=== PATIENT | male | born 1940 | race Caucasian/White ===

== ENCOUNTER 2018-09-27 00:18 | Inpatient (IN) | payer MEDICARE, BC ==
[2018-09-27] MEDS ORDERED: Sodium Chloride 0.9% 1,000 ML IV ONE (00:41)
[2018-09-27 01:12] LABS: CHLORIDE,CL 105 mEq/L (98-106); SODIUM,NA 141 mEq/L (136-145)
--- NOTE | 2018-09-27 01:12 | EDM.PDOC ---
ED HPI GENERAL MEDICAL PROBLEM - General Chief Complaint: Abdominal Pain Stated Complaint: epigastric pain Time Seen by Provider: 09/27/18 01:01 Source of Information: Reports: Patient, Family History Limitations: Reports: No Limitations - History of Present Illness INITIAL COMMENTS - FREE TEXT/NARRATIVE: Patient presents to ER with complaints of midepigastric pain and vomiting. Also reports tingling in his left fingers. He had the flu last week on Wednesday and , had frequent vomiting and diarrhea at that time. Slowly recovered over the weekend. Did eat more of a normal diet on Wednesday but had again vomiting tonight but now also has pain. States known to have ulcers in the past so questions if the "flu led to another with all the vomiting ". He admits now his pain has decreased, resting more comfortably now. Did have a normal BM earlier today, did not note any blood in his stools. Is concerned about dehydration as feels very weak. "mouth is dry". Denies any chest pain except mild discomfort at the site of his pacemaker. No shortness of breath. No diaphoresis. No nausea at present. Onset: Gradual Duration: Day(s): Location: Reports: Abdomen Quality: Reports: Burning, Sharp Severity: Moderate Improves with: Reports: Rest Associated Symptoms: Reports: Nausea/Vomiting, Weakness. Denies: Confusion, Chest Pain, Cough, Fever/Chills, Loss of Appetite, Shortness of Breath, Syncope Epigastric Pain Score (Numeric/FACES): 4 - Related Data Allergies Allergy/AdvReac Type Severity Reaction Status Date / Time cefuroxime axetil Allergy Cannot Verified 09/27/18 00:40 [From Ceftin] Remember clarithromycin [From Biaxin] Allergy Cannot Verified 09/27/18 00:40 Remember doxycycline Allergy Cannot Verified 09/27/18 00:40 Remember Home Meds: Home Meds Allopurinol [Zyloprim] 300 mg PO DAILY 01/31/15 [History] Ascorbic Acid [Vitamin C] 1 tab PO DAILY 01/31/15 [History] Cholecalciferol (Vitamin D3) [Vitamin D] 1 tab PO DAILY 01/31/15 [History] Levothyroxine 150 mcg PO ACBREAKFAST 01/31/15 [History] Multivitamin [Multivitamins] 1 tab PO DAILY 01/31/15 [History] amLODIPine [Norvasc] 5 mg PO DAILY 01/31/15 [History] Aspirin [Children's Aspirin] 81 mg PO DAILY 04/29/16 [History] Pantoprazole [ProTONIX] 40 mg PO DAILY 04/29/16 [History] Past Medical History 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 Cardiovascular History: Reports: Hypertension, Pacemaker Gastrointestinal History: Reports: GERD Musculoskeletal History: Reports: Arthritis Endocrine/Metabolic History: Reports: Hypothyroidism - Past Surgical History Musculoskeletal Surgical History: Reports: Hip Replacement, Shoulder Surgery, Other (See Below) Social & Family History - Family History Family Medical History: Noncontributory - Caffeine Use Caffeine Use: Reports: Coffee - Living Situation & Occupation Living situation: Reports: Occupation: Employed ED ROS GENERAL - Review of Systems Review Of Systems: See Below Constitutional: Reports: Chills, Malaise, Weakness, Fatigue, Decreased Appetite. Denies: Fever HEENT: Denies: Ear Pain, Sinus Problem, Throat Pain Respiratory: Denies: Shortness of Breath, Cough Cardiovascular: Reports: Edema. Denies: Chest Pain, Lightheadedness Endocrine: Reports: Fatigue GI/Abdominal: Reports: Abdominal Pain, Diarrhea, Decreased Appetite, Nausea, Vomiting. Denies: Hematochezia, Melena : Reports: No Symptoms Musculoskeletal: Reports: No Symptoms Skin: Reports: No Symptoms Neurological: Reports: No Symptoms, Weakness ED EXAM, GI/ABD - Physical Exam Exam: See Below Exam Limited By: No Limitations General Appearance: Alert, WD/WN, No Apparent Distress Ears: Normal External Exam, Normal TMs Nose: Normal Inspection, Normal Mucosa, No Blood Throat/Mouth: Normal Inspection, Normal Oropharynx, Other (mucous membranes dry) Head: Normocephalic Neck: Normal Inspection, Supple, Non-Tender Respiratory/Chest: No Respiratory Distress, Lungs Clear, Normal Breath Sounds Cardiovascular: Irregularly Irregular GI/Abdominal Exam: Normal Bowel Sounds, Soft, Tender (midepigastric area) Extremities: Normal Inspection, Normal Capillary Refill Neurological: Alert, Oriented Skin Exam: Warm, Dry Course - Vital Signs Last Recorded V/S: Last Vital Signs Temp 96.7 F 09/27/18 00:37 Pulse 66 09/27/18 00:37 Resp 18 09/27/18 00:37 BP 101/65 09/27/18 00:37 Pulse Ox 94 L 09/27/18 00:37 - Orders/Labs/Meds Orders: Active Orders 24 hr Category Date Time Status EKG Documentation Completion [RC] STAT Care 09/27/18 00:41 Active Sodium Chloride 0.9% [Normal Saline] 1,000 ml Med 09/27/18 00:41 Active IV .BOLUS Medication Orders Sodium Chloride (Normal Saline) 1,000 mls @ 999 mls/hr IV .BOLUS ONE Stop: 09/27/18 01:41 Last Admin: 09/27/18 00:50 Dose: 999 mls/hr Labs: Laboratory Tests 09/27/18 09/27/18 09/27/18 Range/Units 00:51 00:51 00:51 WBC 10.9 H (5.0-10.0) 10^3/uL RBC 4.49 L (4.50-6.00) 10^6/uL Hgb 14.9 (14.0-18.0) g/dL Hct 43.3 (40.0-54.0) % MCV 96.4 H (82.0-94.0) fL MCH 33.2 H (27.0-32.0) pg MCHC 34.4 (33.0-38.0) g/dL RDW Coeff of Nehemias 13.3 (11.0-15.0) % Plt Count 269 (150-400) 10^3/uL Neut % (Auto) 76.4 (35-85) % Lymph % (Auto) 10.3 (10-55) % [place] % (Auto) 12.1 (0-16) % Eos % (Auto) 1.1 (0-5) % Baso % (Auto) 0.1 (0-3) % Neut # (Auto) 8.31 H (1.80-7.00) 10^3/uL Lymph # (Auto) 1.12 (1.00-4.80) 10^3/uL [place] # (Auto) 1.32 H (0.00-0.80) 10^3/uL Eos # (Auto) 0.12 (0.00-0.45) 10^3/uL Baso # (Auto) 0.01 10^3/uL PT 10.6 (9.7-12.3) SEC INR 1.02 (0.92-1.18) Sodium 141 (136-145) mEq/L Potassium 3.7 (3.5-5.0) mEq/L Chloride 105 (98-106) mEq/L Carbon Dioxide 24 (21-32) mmol/L BUN 33 H (7-18) mg/dL Creatinine 1.0 (0.7-1.3) mg/dL Est Cr Clr Drug Dosing 60.48 mL/min Estimated GFR (MDRD) > 60 (>=60) mL/min Glucose 93 (75-99) mg/dL Calcium 8.6 (8.4-10.1) mg/dL Lactate Dehydrogenase 166 (100-190) U/L Creatine Kinase 34 L (35-232) U/L Troponin I < 0.017 (0.00-0.06) ng/mL Meds: Medications Generic Name Dose Route Start Last Admin Trade Name Freq PRN Reason Stop Dose Admin Sodium Chloride 1,000 mls @ 999 mls/hr 09/27/18 00:41 09/27/18 00:50 Normal Saline IV 09/27/18 01:41 999 mls/hr .BOLUS ONE Administration - Re-Assessments/Exams Free Text/Narrative Re-Assessment/Exam: 09/27/18 01:18 Patient now again having midepigastric pain and pain near his pacemaker site again. Is tender to palpation to both areas. labs all normal at this time. will repeat later this am. Departure - Departure Time of Disposition: 01:19 Disposition: Refer to Observation Condition: Fair Clinical Impression: Abdominal pain, Dehydration - Discharge Information *PRESCRIPTION DRUG MONITORING PROGRAM REVIEWED*: No *COPY OF PRESCRIPTION DRUG MONITORING REPORT IN PATIENT DEACON: No Referrals: Cris Laurent PA [Primary Care Provider] - Forms: ED Department Discharge - Problem List & Annotations (1) Abdominal pain SNOMED Code(s): 56007404 Code(s): R10.9 - UNSPECIFIED ABDOMINAL PAIN Status: Acute Priority: High Current Visit: Yes Qualifiers: Abdominal location: epigastric Qualified Code(s): R10.13 - Epigastric pain (2) Dehydration SNOMED Code(s): 72900117 Code(s): E86.0 - DEHYDRATION Status: Acute Priority: High Current Visit : Yes (3) Atypical chest pain SNOMED Code(s): 601258420 Code(s): R07.89 - OTHER CHEST PAIN Status: Acute Current Visit: Yes - Problem List Review Problem List Initiated/Reviewed/Updated: Yes - My Orders Last 24 Hours: My Active Orders 09/27/18 00:41 EKG Documentation Completion [RC] STAT Sodium Chloride 0.9% [Normal Saline] 1,000 ml IV .BOLUS - Assessment/Plan Admission H&P: Please use this note as an admission H&P Last 24 Hours: My Active Orders 09/27/18 00:41 EKG Documentation Completion [RC] STAT Sodium Chloride 0.9% [Normal Saline] 1,000 ml IV .BOLUS Assessment:: Abdominal Pain Dehydration Atypical Chest Pain Plan: Admit observation IV fluids IV Protonix. Repeat labs
[2018-09-27] MEDS ORDERED: Sodium Chloride 0.9% 1,000 ML ONE (02:05)
[2018-09-27] MEDS: Sodium Chloride 0.9% 1,000 ML IV SCH ×3 (02:05→17:52)
[2018-09-27] MEDS ORDERED: Enoxaparin 40 MG/0.4 ML Syringe SUBCUT SCH ×2 (03:02→07:00)
[2018-09-27] MEDS ORDERED: Acetaminophen 325 MG Tab PO PRN (03:02)
[2018-09-27] MEDS ORDERED: Sodium Chloride 0.9% 10 ML Syringe FLUSH PRN (03:02)
[2018-09-27] MEDS ORDERED: Ondansetron 4 MG/2 ML SDV IV PRN (03:02)
[2018-09-27] MEDS ORDERED: Temazepam 15 MG Cap PO PRN (03:02)
[2018-09-27 07:32] LABS: CHLORIDE,CL 107 mEq/L (98-106); SODIUM,NA 141 mEq/L (136-145)
[2018-09-27] MEDS ORDERED: **PTOM** Allopurinol 300 MG Tab PO SCH (08:00)
[2018-09-27] MEDS: Ondansetron 4 MG Tab.DIS PO PRN ×2 (08:55→12:54)
[2018-09-27] MEDS: Pantoprazole 40 MG Vial IVPUSH SCH (09:40)
[2018-09-27] MEDS: LEVOTHYROXINE 150 MCG PO SCH (12:55)
[2018-09-27] MEDS: **PTOM** Allopurinol 300 MG Tab PO SCH (19:25)
[2018-09-28] MEDS: Sodium Chloride 0.9% 1,000 ML IV SCH ×2 (01:40→10:42)
[2018-09-28] MEDS ORDERED: Lactated Ringers 1,000 ML ONE (01:43)
[2018-09-28] MEDS ORDERED: Lactated Ringers 1,000 ML IV SCH (06:00)
[2018-09-28] MEDS ORDERED: Midazolam 1 MG/ML 2 ML SDV ONE (07:52)
[2018-09-28] MEDS ORDERED: Meperidine PF 50 MG/ML Syringe ONE (07:52)
[2018-09-28 08:10] LABS: CHLORIDE,CL 109 mEq/L (98-106); SODIUM,NA 144 mEq/L (136-145)
[2018-09-28] MEDS ORDERED: Benzocaine 20% Oral Spray 59.2 ML Canister MUCMEM ONE (08:20)
[2018-09-28] MEDS ORDERED: Meperidine PF 25 MG/ML Syringe IV ONE (08:22)
[2018-09-28] MEDS ORDERED: Midazolam 1 MG/ML 2 ML SDV IV ONE (08:22)
[2018-09-28] MEDS: Enoxaparin 40 MG/0.4 ML Syringe SUBCUT SCH (09:14)
[2018-09-28] MEDS: LEVOTHYROXINE 150 MCG PO SCH (09:14)
[2018-09-28] MEDS: Pantoprazole 40 MG Vial IVPUSH SCH (09:15)
[2018-09-28] MEDS: Nystatin Susp 100,000 Unit/ML 5 ML UD Cup PO SCH ×4 (09:17→19:38)
[2018-09-28] MEDS ORDERED: Iopamidol 755 Mg/ML 100 ML Bottle IVPUSH ONE (12:55)
--- NOTE | 2018-09-28 17:06 | PCM.PN ---
- General Info Date of Service: 09/28/18 Admission Dx/Problem (Free Text): Abdominal Pain Subjective Update: Sina is an 78 year old male who was admitted to the hospital from the ED yesterday 09/27/2018 with c/o midepigastric pain and vomiting. Apparently vomiting had been going on for about a week or so and pain seemed to be worsening. Patient reports he does seem to be feeling a little better this morning. Did have EGD by Dr. Galvez this morning, which showed some areas of questionable esophageal yeast infection. Reports he does have cough, but has not vomited much. Does have some left sided upper abdominal pain as well as midsternal pain. He denies any shortness of breath. Has been afebrile. Functional Status: Reports: Pain Controlled, Tolerating Diet, Ambulating, Urinating. Denies: New Symptoms - Review of Systems General: Denies: Fever, Weakness, Fatigue, Chills Pulmonary: Reports: Cough. Denies: Shortness of Breath, Pleuritic Chest Pain, Sputum, Hemoptysis Cardiovascular: Reports: Dyspnea on Exertion. Denies: Chest Pain, Edema, Lightheadedness Gastrointestinal: Reports: Abdominal Pain, Nausea. Denies: Diarrhea, Vomiting Genitourinary: Reports: No Symptoms Neurological: Reports: No Symptoms Psychiatric: Reports: No Symptoms - Patient Data Vitals - Most Recent: Last Vital Signs Temp 98.8 F 09/28/18 16:00 Pulse 69 09/28/18 16:00 Resp 20 09/28/18 16:00 BP 120/58 L 09/28/18 16:00 Pulse Ox 98 09/28/18 16:00 Weight - Most Recent: 174 lb 14.4 oz I&O - Last 24 Hours: Intake & Output 09/28/18 09/28/18 09/28/18 06:59 14:59 22:59 Intake Total 975 1000 Balance 975 1000 Lab Results Last 24 Hours: Laboratory Results - last 24 hr 09/28/18 09/28/18 Range/Units 05:11 07:15 WBC 4.9 L (5.0-10.0) 10^3/uL RBC 4.16 L (4.50-6.00) 10^6/uL Hgb 13.8 L (14.0-18.0) g/dL Hct 41.0 (40.0-54.0) % MCV 98.6 H (82.0-94.0) fL MCH 33.2 H (27.0-32.0) pg MCHC 33.7 (33.0-38.0) g/dL RDW Coeff of Nehemias 13.4 (11.0-15.0) % Plt Count 259 (150-400) 10^3/uL Neut % (Auto) 54.7 (35-85) % Lymph % (Auto) 32.3 (10-55) % [place] % (Auto) 11.0 (0-16) % Eos % (Auto) 1.8 (0-5) % Baso % (Auto) 0.2 (0-3) % Neut # (Auto) 2.70 (1.80-7.00) 10^3/uL Lymph # (Auto) 1.59 (1.00-4.80) 10^3/uL [place] # (Auto) 0.54 (0.00-0.80) 10^3/uL Eos # (Auto) 0.09 (0.00-0.45) 10^3/uL Baso # (Auto) 0.01 10^3/uL Sodium 144 (136-145) mEq/L Potassium 4.0 (3.5-5.0) mEq/L Chloride 109 H (98-106) mEq/L Carbon Dioxide 28 (21-32) mmol/L BUN 13 D (7-18) mg/dL Creatinine 0.9 (0.7-1.3) mg/dL Est Cr Clr Drug Dosing 67.59 mL/min Estimated GFR (MDRD) > 60 (>=60) mL/min Glucose 84 (75-99) mg/dL Calcium 8.4 (8.4-10.1) mg/dL C-Reactive Protein 0.4 (0.2-0.8) mg/dL Med Orders - Current: Current Medications Acetaminophen (Tylenol) 650 mg PO Q4H PRN PRN Reason: Pain (Mild 1-3)/fever Allopurinol (Zyloprim) 300 mg PO BEDTIME [facility] Last Admin: 09/27/18 19:25 Dose: 300 mg Enoxaparin Sodium (Lovenox) 40 mg SUBCUT DAILY@0800 [facility] Last Admin: 09/28/18 09:14 Dose: 40 mg Levothyroxine Sodium (Levothyroxine) 150 mcg PO ACBREAKFAST [facility] Last Admin: 09/28/18 09:14 Dose: Not Given Nystatin (Mycostatin) 10 ml PO QID [facility] Last Admin: 09/28/18 16:23 Dose: 10 ml Ondansetron HCl (Zofran Odt) 4 mg PO Q4H PRN PRN Reason: nausea, able to take PO Last Admin: 09/27/18 12:54 Dose: 4 mg Ondansetron HCl (Zofran) 4 mg IV Q4H PRN PRN Reason: Nausea/Vomiting Pantoprazole Sodium (Protonix Iv) 40 mg IVPUSH DAILY [facility] Last Admin: 09/28/18 09:15 Dose: 40 mg Sodium Chloride (Saline Flush) 10 ml FLUSH ASDIRECTED PRN PRN Reason: Keep Vein Open Temazepam (Restoril) 15 mg PO BEDTIME PRN PRN Reason: Sleep Discontinued Medications Allopurinol (Zyloprim) 300 mg PO DAILY [facility] Last Admin: 09/27/18 18:17 Dose: Not Given Benzocaine (Hurricaine 20% [place]) 5 ml MUCMEM .STK-MED ONE Stop: 09/28/18 08:21 Last Admin: 09/28/18 08:20 Dose: 5 ml Enoxaparin Sodium (Lovenox) 40 mg SUBCUT Q24H [facility] Last Admin: 09/27/18 03:41 Dose: Not Given Enoxaparin Sodium (Lovenox) 40 mg SUBCUT Q24H [facility] Last Admin: 09/27/18 06:33 Dose: 40 mg Sodium Chloride (Normal Saline) 1,000 mls @ 999 mls/hr IV .BOLUS ONE Stop: 09/27/18 01:41 Last Admin: 09/27/18 00:50 Dose: 999 mls/hr Sodium Chloride (Normal Saline) Confirm Administered Dose 1,000 mls @ as directed .ROUTE .STK-MED ONE Stop: 09/27/18 02:06 Last Admin: 09/27/18 02:51 Dose: Not Given Sodium Chloride (Normal Saline) 1,000 mls @ 125 mls/hr IV ASDIRECTED [facility] Last Admin: 09/28/18 10:42 Dose: 125 mls/hr Lactated Ringer's (Ringers, Lactated) 1,000 mls @ 125 mls/hr IV ASDIRECTED [facility]IS[facility] Last Admin: 09/28/18 07:41 Dose: 125 mls/hr Lactated Ringer's (Ringers, Lactated) Confirm Administered Dose 1,000 mls @ as directed .ROUTE .STK-MED ONE Stop: 09/28/18 01:44 Last Admin: 09/28/18 02:01 Dose: Not Given Iopamidol (Isovue-370 (76%)) 100 ml IVPUSH ONETIME ONE Stop: 09/28/18 12:56 Last Admin: 09/28/18 13:15 Dose: 100 ml Meperidine HCl (Demerol) Confirm Administered Dose 50 mg .ROUTE .STK-MED ONE Stop: 09/28/18 07:53 Last Admin: 09/28/18 10:15 Dose: Not Given Meperidine HCl (Demerol) 25 mg IV .STK-MED ONE Stop: 09/28/18 08:23 Last Admin: 09/28/18 08:22 Dose: 25 mg Midazolam HCl (Versed 1 Mg/Ml) Confirm Administered Dose 4 mg .ROUTE .STK-MED ONE Stop: 09/28/18 07:53 Last Admin: 09/28/18 10:15 Dose: Not Given Midazolam HCl (Versed 1 Mg/Ml) 4 mg IV .STK-MED ONE Stop: 09/28/18 08:23 Last Admin: 09/28/18 08:22 Dose: 4 mg - Exam General: Alert, Oriented, No Acute Distress Neck: Supple Lungs: Clear to Auscultation, Normal Respiratory Effort, Rhonchi (LLL) Cardiovascular: Regular Rate, Regular Rhythm GI/Abdominal Exam: Normal Bowel Sounds, Soft, Tender (midepigastric, LUQ). No: Distended, Guarding, Rigid, Rebound Back Exam: Normal Inspection, Full Range of Motion Extremities: Normal Inspection, Normal Range of Motion, Non-Tender, No Pedal Edema, Normal Capillary Refill Neurological: No New Focal Deficit Psy/Mental Status: Alert, Normal Affect, Normal Mood - Problem List & Annotations (1) Pneumonia SNOMED Code(s): 164399590 Code(s): J18.9 - PNEUMONIA, UNSPECIFIED ORGANISM Status: Acute Current Visit: Yes Qualifiers: Pneumonia type: aspiration pneumonia Aspiration pneumonia type: due to vomit Laterality: left Lung location: lower lobe of lung Qualified Code(s) : J69.0 - Pneumonitis due to inhalation of food and vomit - Problem List Review Problem List Initiated/Reviewed/Updated: Yes - My Orders Last 24 Hours: My Active Orders 09/28/18 08:37 Abdomen Pelvis w Cont [CT] Routine 09/28/18 09:00 Nystatin [Mycostatin] 10 ml PO QID 09/28/18 14:56 Patient Status [ADT] Routine - Plan Plan:: EGD shows no obvious cause of abdominal pain. Does show some areas of questionable yeast, which were biopsied. Start patient on Nystatin swish & swallow QID. Since no obvious cause of pain identified, did opt to proceed with CT abdomen/ pelvis given ongoing pain/N/V. CT reveals LLL pneumonia, likely aspiration. Will start patient on clindamycin and admit to acute for IV antibiotics. Repeat labs in am. Anticipate length of stay 2-3 days.
[2018-09-28] MEDS: Clindamycin Phosphate in D5W 300 MG in Premix Bag 1 BAG IV SCH ×4 (17:47→23:28)
[2018-09-28] MEDS: **PTOM** Allopurinol 300 MG Tab PO SCH (19:38)
[2018-09-29] MEDS: Clindamycin Phosphate in D5W 300 MG in Premix Bag 1 BAG IV SCH ×10 (04:08→23:32)
[2018-09-29] MEDS: LEVOTHYROXINE 150 MCG PO SCH (06:36)
[2018-09-29 07:29] LABS: CHLORIDE,CL 104 mEq/L (98-106); SODIUM,NA 141 mEq/L (136-145)
[2018-09-29] MEDS: Nystatin Susp 100,000 Unit/ML 5 ML UD Cup PO SCH ×4 (07:41→19:23)
[2018-09-29] MEDS: Pantoprazole 40 MG Vial IVPUSH SCH (07:41)
[2018-09-29] MEDS: Enoxaparin 40 MG/0.4 ML Syringe SUBCUT SCH (07:41)
--- NOTE | 2018-09-29 09:09 | OR ---
DATE OF OPERATION: 09/28/2018 PREOPERATIVE DIAGNOSIS: EPIGASTRIC PAIN. POSTOPERATIVE DIAGNOSIS: EPIGASTRIC PAIN. SURGEON: Jose Galvez MD PROCEDURE: EGD WITH POLYP REMOVAL X2, DISTAL ESOPHAGEAL BRUSH BIOPSY WITH CULTURE. ANESTHESIA: Conscious sedation with 25 mg of Demerol, 4 mg of Versed with continuous O2 saturation monitoring and nurse assist. Patient's oxygenation stayed above 90% for the entire procedure. COMPLICATIONS: None. SPECIMEN: 1. Fundal polyps x2. 2. [place] biopsy/culture, distal esophagus. FINDINGS: 1. Full-length EGD. 2. Essentially benign duodenum and stomach with 2 small adenomatous polyps in the mid fundus. 3. Likely, distal esophageal candidiasis. RECOMMENDATIONS: Patient will be placed on nystatin 10 mL swish and swallow. We will plan on a CT abdomen and pelvis as his symptoms of abdominal epigastric pain not necessarily coincide with Jazmin. INDICATIONS: Patient was apparently admitted yesterday by Cris Laurent for acute onset of epigastric pain, some vomiting, and apparently has a history of peptic ulcer disease. She admitted him for appropriate cares and I was consulted for an EGD. DESCRIPTION OF PROCEDURE: The patient was prepped and draped, placed in left lateral decubitus position. A lubricated Olympus gastroscope was inserted over a bit and advanced to cricopharyngeus area and easily intubated in the esophagus. From the proximal esophagus down through the upper cardia of the stomach, the patient did have white plaque-like areas that appeared to be Jazmin in nature. No real inflammation of the esophagus was seen, nor was any gross esophagitis, stricturing, or inflammation that I could see. I did do a brush biopsy and culture of this. No other lesions were seen. The scope was easily intubated into the stomach through the pylorus and into the second portion of the duodenum. This and the duodenal bulb were completely benign. The scope was brought back into the stomach and retroflexed. With retroflexion, the upper cardia and fundus essentially appeared benign other than maybe some Jazmin type changes in the most upper portion of the cardia. I could find no signs of any peptic ulcer disease. Upon straightening, the rest of the gastric lining, we did see a few small adenomatous polyps in the [id number] fundus, those both removed with a forceps. The antrum itself was completely benign. Air was then suctioned from the stomach. The scope was removed without complication. DANIELLE/INOCENCIO /[id number]
--- NOTE | 2018-09-29 09:10 | PCM.PN ---
- General Info Date of Service: 09/29/18 Admission Dx/Problem (Free Text): Abdominal Pain Functional Status: Reports: Pain Controlled, Tolerating Diet, Ambulating - Review of Systems General: Reports: Weakness, Fatigue. Denies: Fever HEENT: Reports: Rhinitis. Denies: Ear Pain, Sinus Congestion Pulmonary: Denies: Shortness of Breath, Cough Cardiovascular: Denies: Chest Pain, Edema, Lightheadedness Gastrointestinal: Denies: Abdominal Pain, Nausea, Vomiting Genitourinary: Reports: No Symptoms Musculoskeletal: Reports: Joint Pain Skin: Reports: No Symptoms - Patient Data Vitals - Most Recent: Last Vital Signs Temp 97.8 F 09/29/18 07:42 Pulse 70 09/29/18 07:42 Resp 16 09/29/18 07:42 BP 130/70 09/29/18 07:42 Pulse Ox 98 09/29/18 07:42 Weight - Most Recent: 174 lb 14.4 oz I&O - Last 24 Hours: Intake & Output 09/28/18 09/29/18 09/29/18 22:59 06:59 14:59 Intake Total 50 50 Balance 50 50 Lab Results Last 24 Hours: Laboratory Results - last 24 hr 09/29/18 09/29/18 Range/Units 06:45 06:45 WBC 10.3 H (5.0-10.0) 10^3/uL RBC 4.70 (4.50-6.00) 10^6/uL Hgb 15.5 (14.0-18.0) g/dL Hct 45.9 (40.0-54.0) % MCV 97.7 H (82.0-94.0) fL MCH 33.0 H (27.0-32.0) pg MCHC 33.8 (33.0-38.0) g/dL RDW Coeff of Nehemias 13.4 (11.0-15.0) % Plt Count 306 (150-400) 10^3/uL Neut % (Auto) 68.5 (35-85) % Lymph % (Auto) 21.8 (10-55) % Josephine % (Auto) 7.8 (0-16) % Eos % (Auto) 1.7 (0-5) % Baso % (Auto) 0.2 (0-3) % Neut # (Auto) 7.05 H (1.80-7.00) 10^3/uL Lymph # (Auto) 2.24 (1.00-4.80) 10^3/uL Josephine # (Auto) 0.80 (0.00-0.80) 10^3/uL Eos # (Auto) 0.17 (0.00-0.45) 10^3/uL Baso # (Auto) 0.02 10^3/uL Sodium 141 (136-145) mEq/L Potassium 4.3 (3.5-5.0) mEq/L Chloride 104 (98-106) mEq/L Carbon Dioxide 30 (21-32) mmol/L BUN 14 (7-18) mg/dL Creatinine 1.0 (0.7-1.3) mg/dL Est Cr Clr Drug Dosing 60.83 mL/min Estimated GFR (MDRD) > 60 (>=60) mL/min Glucose 86 (75-99) mg/dL Calcium 8.9 (8.4-10.1) mg/dL C-Reactive Protein 3.5 H (0.2-0.8) mg/dL Bhupendra Results Last 24 Hours: Microbiology 09/28/18 09:00 Wound Culture - Preliminary Other - Brushing Med Orders - Current: Current Medications Acetaminophen (Tylenol) 650 mg PO Q4H PRN PRN Reason: Pain (Mild 1-3)/fever Allopurinol (Zyloprim) 300 mg PO BEDTIME [facility] Last Admin: 09/28/18 19:38 Dose: 300 mg Enoxaparin Sodium (Lovenox) 40 mg SUBCUT DAILY@0800 [facility] Last Admin: 09/29/18 07:41 Dose: 40 mg Clindamycin Phosphate 300 mg/ (Premix) 50 mls @ 100 mls/hr IV Q6H [facility] Last Admin: 09/29/18 04:08 Dose: 100 mls/hr Levothyroxine Sodium (Levothyroxine) 150 mcg PO ACBREAKFAST [facility] Last Admin: 09/29/18 06:36 Dose: 150 mcg Nystatin (Mycostatin) 10 ml PO QID [facility] Last Admin: 09/29/18 07:41 Dose: 10 ml Ondansetron HCl (Zofran Odt) 4 mg PO Q4H PRN PRN Reason: nausea, able to take PO Last Admin: 09/27/18 12:54 Dose: 4 mg Ondansetron HCl (Zofran) 4 mg IV Q4H PRN PRN Reason: Nausea/Vomiting Pantoprazole Sodium (Protonix Iv) 40 mg IVPUSH DAILY [facility] Last Admin: 09/29/18 07:41 Dose: 40 mg Sodium Chloride (Saline Flush) 10 ml FLUSH ASDIRECTED PRN PRN Reason: Keep Vein Open Temazepam (Restoril) 15 mg PO BEDTIME PRN PRN Reason: Sleep Discontinued Medications Allopurinol (Zyloprim) 300 mg PO DAILY [facility] Last Admin: 09/27/18 18:17 Dose: Not Given Benzocaine (Hurricaine 20% [place]) 5 ml MUCMEM .[facility] ONE Stop: 09/28/18 08:21 Last Admin: 09/28/18 08:20 Dose: 5 ml Enoxaparin Sodium (Lovenox) 40 mg SUBCUT Q24H [facility] Last Admin: 09/27/18 03:41 Dose: Not Given Enoxaparin Sodium (Lovenox) 40 mg SUBCUT Q24H [facility] Last Admin: 09/27/18 06:33 Dose: 40 mg Sodium Chloride (Normal Saline) 1,000 mls @ 999 mls/hr IV .BOLUS ONE Stop: 09/27/18 01:41 Last Admin: 09/27/18 00:50 Dose: 999 mls/hr Sodium Chloride (Normal Saline) Confirm Administered Dose 1,000 mls @ as directed .ROUTE .[facility] ONE Stop: 09/27/18 02:06 Last Admin: 09/27/18 02:51 Dose: Not Given Sodium Chloride (Normal Saline) 1,000 mls @ 125 mls/hr IV ASDIRECTED [facility] Last Admin: 09/28/18 10:42 Dose: 125 mls/hr Lactated Ringer's (Ringers, Lactated) 1,000 mls @ 125 mls/hr IV ASDIRECTED [facility] Last Admin: 09/28/18 07:41 Dose: 125 mls/hr Lactated Ringer's (Ringers, Lactated) Confirm Administered Dose 1,000 mls @ as directed .ROUTE .[facility] ONE Stop: 09/28/18 01:44 Last Admin: 09/28/18 02:01 Dose: Not Given Iopamidol (Isovue-370 (76%)) 100 ml IVPUSH ONETIME ONE Stop: 09/28/18 12:56 Last Admin: 09/28/18 13:15 Dose: 100 ml Meperidine HCl (Demerol) Confirm Administered Dose 50 mg .ROUTE .[facility]-MED ONE Stop: 09/28/18 07:53 Last Admin: 09/28/18 10:15 Dose: Not Given Meperidine HCl (Demerol) 25 mg IV .STK-[facility] ONE Stop: 09/28/18 08:23 Last Admin: 09/28/18 08:22 Dose: 25 mg Midazolam HCl (Versed 1 Mg/Ml) Confirm Administered Dose 4 mg .ROUTE .[facility]-MED ONE Stop: 09/28/18 07:53 Last Admin: 09/28/18 10:15 Dose: Not Given Midazolam HCl (Versed 1 Mg/Ml) 4 mg IV .STK-MED ONE Stop: 09/28/18 08:23 Last Admin: 09/28/18 08:22 Dose: 4 mg - Exam General: Alert, Oriented HEENT: Mucous Membr. Moist/[place] Neck: Supple Lungs: Clear to Auscultation, Normal Respiratory Effort Cardiovascular: Irregular Rhythm GI/Abdominal Exam: Normal Bowel Sounds, Soft, Non-Tender Extremities: Normal Inspection, No Pedal Edema Skin: Warm, Dry Neurological: No New Focal Deficit - Problem List & Annotations (1) Abdominal pain SNOMED Code(s): 30215150 Code(s): R10.9 - UNSPECIFIED ABDOMINAL PAIN Status: Acute Priority: High Current Visit: Yes Qualifiers: Abdominal location: epigastric Qualified Code(s): R10.13 - Epigastric pain (2) Dehydration SNOMED Code(s): 29350013 Code(s): E86.0 - DEHYDRATION Status: Acute Priority: High Current Visit : Yes (3) Atypical chest pain SNOMED Code(s): 146169146 Code(s): R07.89 - OTHER CHEST PAIN Status: Acute Priority: High Current Visit: Yes (4) Pneumonia SNOMED Code(s): 550520690 Code(s): J18.9 - PNEUMONIA, UNSPECIFIED ORGANISM Status: Acute Priority: High Current Visit: Yes Qualifiers: Pneumonia type: aspiration pneumonia Aspiration pneumonia type: due to vomit Laterality: left Lung location: lower lobe of lung Qualified Code(s) : J69.0 - Pneumonitis due to inhalation of food and vomit - Problem List Review Problem List Initiated/Reviewed/Updated: Yes - Assessment Assessment:: Midepigastric Pain Yeast infection of the Esophagus LLL Pneumonia, likely aspiration related - Plan Plan:: EGD shows no obvious cause of abdominal pain. Does show some areas of questionable yeast, which were biopsied. Start patient on Nystatin swish & swallow QID. Since no obvious cause of pain identified, did opt to proceed with CT abdomen/ pelvis given ongoing pain/N/V. CT reveals LLL pneumonia, likely aspiration. Will start patient on clindamycin and admit to acute for IV antibiotics. Repeat labs in am. Anticipate length of stay 2-3 days. 09-29-2018 Patient feeling good this am. Denies much for cough, does admit gets short of breath after activity. Oxygen sats are good on room air. He is eating well now. Denies further nausea. Still has mild "soreness in abdomen". Relates "never had the flu like that before". Patient had CT scan yesterday due to ongoing abdominal pain which did reveal a LLL Pneumonia, likely aspiration. Was started on IV Cleocin at that time. WBC is elevated at 10.3 now, had been normal. CRP mildly elevated today as well at 3.5. Will continue with Nystatin swish and swallow, IV Cleocin. Possible discharge home tomorrow.
[2018-09-29] MEDS: **PTOM** Allopurinol 300 MG Tab PO SCH (19:23)
[2018-09-29] MEDS ORDERED: Calcium Carbonate 500 MG Tab.Chew PO PRN (20:18)
[2018-09-30] MEDS: Clindamycin Phosphate in D5W 300 MG in Premix Bag 1 BAG IV SCH ×2 (05:12)
[2018-09-30] MEDS: LEVOTHYROXINE 150 MCG PO SCH (06:49)
[2018-09-30] MEDS: Nystatin Susp 100,000 Unit/ML 5 ML UD Cup PO SCH (07:53)
[2018-09-30] MEDS: Pantoprazole 40 MG Vial IVPUSH SCH (07:53)
[2018-09-30] MEDS: Enoxaparin 40 MG/0.4 ML Syringe SUBCUT SCH (07:53)
[2018-09-30 08:45] LABS: CHLORIDE,CL 105 mEq/L (98-106); SODIUM,NA 141 mEq/L (136-145)
[2018-09-30 12:02] VITALS: BP 153/65
--- NOTE | 2018-10-01 09:17 | PCM.DCSUM1 ---
Discharge Summary - Hospital Course Free Text/Narrative:: Patient presented to ER with complaints of nausea and midepigastric pain. 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 Had been ill with gastroenteritis, frequent diarrhea and vomiting. Was doing well for a day but pain became more intense. Had tried TUMS without much relief. He has a history of PUD. Chest pain protocol was initiated, patient noted to be in atrial fib. Troponin negative. Was admitted for IV fluids, Protonix and cardiac monitoring. Diagnosis: Stroke: No Modified [place] Scale: No Symptoms at All Modified Subha Scale Score: 0 - Discharge Data Discharge Date: 09/30/18 Discharge Disposition: Home, Self-Care 01 Condition: Good - Discharge Diagnosis/Problem(s) (1) Abdominal pain SNOMED Code(s): 09202427 ICD Code: R10.9 - UNSPECIFIED ABDOMINAL PAIN Status: Acute Priority: High Qualifiers: Abdominal location: epigastric Qualified Code(s): R10.13 - Epigastric pain (2) Dehydration SNOMED Code(s): 92683116 ICD Code: E86.0 - DEHYDRATION Status: Acute Priority: High (3) Atypical chest pain SNOMED Code(s): 216010618 ICD Code: R07.89 - OTHER CHEST PAIN Status: Acute Priority: High (4) Pneumonia SNOMED Code(s): 332050225 ICD Code: J18.9 - PNEUMONIA, UNSPECIFIED ORGANISM Status: Acute Priority : High Qualifiers: Pneumonia type: aspiration pneumonia Aspiration pneumonia type: due to vomit Laterality: left Lung location: lower lobe of lung Qualified Code(s) : J69.0 - Pneumonitis due to inhalation of food and vomit - Patient Summary/Data Complications: none Consults: Consultations 09/27/18 09:40 Consult to Physician [CONS] Routine Hospital Course: Patient doing well. Is eating without nausea now. No further midepigastric pain. He did have an EGD, no discernible source of pain found. Possible yeast infection noted so started on Diflucan. Due to EGD being essentially negative for gastritis/PUD, CT scan of abdomen and pelvis was done. CT noted for cholelithiasis, diverticulosis but active inflammation and LLL pneumonia, likely related to aspiration as a result of all of his vomiting. Patient was then started on IV Cleocin. He has not had any shortness of breath. Mild nonproductive cough. WBC did peak at 10.5, CRP 3.5 but all improved again today. Patient did have intermittent concerns with atrial fib. Will obtain an echocardiogram this week, follow up on Wednesday and determine need for anticoagulation. - Patient Instructions Diet: Usual Diet as Tolerated Activity: As Tolerated Other/Special Instructions: echocardiogram next week - Discharge Plan *PRESCRIPTION DRUG MONITORING PROGRAM REVIEWED*: No *COPY OF PRESCRIPTION DRUG MONITORING REPORT IN PATIENT DEACON: No Prescriptions/Med Rec: Amoxicillin/Potassium Clav [Augmentin 875-125 Tablet] 1 each PO BID #14 tablet Nystatin [Mycostatin] 10 ml PO QID #280 cup Home Medications: Home Meds Allopurinol [Zyloprim] 300 mg PO DAILY 01/31/15 [History] Ascorbic Acid [Vitamin C] 1 tab PO DAILY 01/31/15 [History] Cholecalciferol (Vitamin D3) [Vitamin D] 1 tab PO DAILY 01/31/15 [History] Levothyroxine 150 mcg PO ACBREAKFAST 01/31/15 [History] Multivitamin [Multivitamins] 1 tab PO DAILY 01/31/15 [History] amLODIPine [Norvasc] 5 mg PO DAILY 01/31/15 [History] Aspirin [Children's Aspirin] 81 mg PO DAILY 04/29/16 [History] Pantoprazole [ProTONIX] 40 mg PO DAILY 04/29/16 [History] Amoxicillin/Potassium Clav [Augmentin 875-125 Tablet] 1 each PO BID #14 tablet 09/30/18 [Rx] Nystatin [Mycostatin] 10 ml PO QID #280 cup 09/30/18 [Rx] Patient Handouts: Aspiration Pneumonia Forms: ED Department Discharge Referrals: Cris Laurent PA [Primary Care Provider] - (Follow up next with Kiah) - Discharge Summary/Plan Comment DC Time >30 min.: No - General Info Date of Service: 09/30/18 Admission Dx/Problem (Free Text: Abdominal Pain Functional Status: Reports: Pain Controlled, Tolerating Diet, Ambulating - Review of Systems General: Denies: Fever, Weakness, Fatigue HEENT: Reports: No Symptoms Pulmonary: Reports: Cough. Denies: Shortness of Breath Cardiovascular: Denies: Chest Pain, Edema, Lightheadedness Gastrointestinal: Denies: Abdominal Pain, Diarrhea, Nausea, Vomiting Genitourinary: Reports: No Symptoms Musculoskeletal: Reports: Joint Pain Skin: Reports: No Symptoms Neurological: Reports: No Symptoms - Patient Data Vitals - Most Recent: Last Vital Signs Temp 97.5 F 09/30/18 08:00 Pulse 65 09/30/18 08:00 Resp 18 09/30/18 08:00 BP 153/65 H 09/30/18 08:00 Pulse Ox 98 09/30/18 08:00 Weight - Most Recent: 174 lb 14.4 oz ROSANA Results - Last 24 hrs: Microbiology 09/28/18 09:00 Wound Culture - Final Other - Brushing Med Orders - Current: Current Medications Discontinued Medications Acetaminophen (Tylenol) 650 mg PO Q4H PRN PRN Reason: Pain (Mild 1-3)/fever Allopurinol (Zyloprim) 300 mg PO DAILY [facility] Last Admin: 09/27/18 18:17 Dose: Not Given Allopurinol (Zyloprim) 300 mg PO BEDTIME [facility] Last Admin: 09/29/18 19:23 Dose: 300 mg Benzocaine (Hurricaine 20% [place]) 5 ml MUCMEM .[facility] ONE Stop: 09/28/18 08:21 Last Admin: 09/28/18 08:20 Dose: 5 ml Calcium Carbonate/Glycine (Tums) 500 mg PO QID PRN PRN Reason: Dyspepsia Last Admin: 09/29/18 20:00 Dose: 500 mg Enoxaparin Sodium (Lovenox) 40 mg SUBCUT Q24H [facility] Last Admin: 09/27/18 03:41 Dose: Not Given Enoxaparin Sodium (Lovenox) 40 mg SUBCUT Q24H [facility] Last Admin: 09/27/18 06:33 Dose: 40 mg Enoxaparin Sodium (Lovenox) 40 mg SUBCUT DAILY@0800 [facility] Last Admin: 09/30/18 07:53 Dose: 40 mg Sodium Chloride (Normal Saline) 1,000 mls @ 999 mls/hr IV .BOLUS ONE Stop: 09/27/18 01:41 Last Admin: 09/27/18 00:50 Dose: 999 mls/hr Sodium Chloride (Normal Saline) Confirm Administered Dose 1,000 mls @ as directed .ROUTE .[facility]-MED ONE Stop: 09/27/18 02:06 Last Admin: 09/27/18 02:51 Dose: Not Given Sodium Chloride (Normal Saline) 1,000 mls @ 125 mls/hr IV ASDIRECTED [facility] Last Admin: 09/28/18 10:42 Dose: 125 mls/hr Lactated Ringer's (Ringers, Lactated) 1,000 mls @ 125 mls/hr IV ASDIRECTED [facility] Last Admin: 09/28/18 07:41 Dose: 125 mls/hr Lactated Ringer's (Ringers, Lactated) Confirm Administered Dose 1,000 mls @ as directed .ROUTE .[facility] ONE Stop: 09/28/18 01:44 Last Admin: 09/28/18 02:01 Dose: Not Given Clindamycin Phosphate 300 mg/ (Premix) 50 mls @ 100 mls/hr IV Q6H [facility] Last Admin: 09/29/18 20:00 Dose: Not Given Clindamycin Phosphate 300 mg/ (Premix) 50 mls @ 100 mls/hr IV 0000,0600,1200, 1800 [facility] Last Admin: 09/30/18 05:12 Dose: 100 mls/hr Iopamidol (Isovue-370 (76%)) 100 ml IVPUSH ONETIME ONE Stop: 09/28/18 12:56 Last Admin: 09/28/18 13:15 Dose: 100 ml Levothyroxine Sodium (Levothyroxine) 150 mcg PO ACBREAKFAST [facility] Last Admin: 09/30/18 06:49 Dose: 150 mcg Meperidine HCl (Demerol) Confirm Administered Dose 50 mg .ROUTE .[facility]-MED ONE Stop: 09/28/18 07:53 Last Admin: 09/28/18 10:15 Dose: Not Given Meperidine HCl (Demerol) 25 mg IV .STK-[facility] ONE Stop: 09/28/18 08:23 Last Admin: 09/28/18 08:22 Dose: 25 mg Midazolam HCl (Versed 1 Mg/Ml) Confirm Administered Dose 4 mg .ROUTE .[facility] ONE Stop: 09/28/18 07:53 Last Admin: 09/28/18 10:15 Dose: Not Given Midazolam HCl (Versed 1 Mg/Ml) 4 mg IV .STK-MED ONE Stop: 09/28/18 08:23 Last Admin: 09/28/18 08:22 Dose: 4 mg Nystatin (Mycostatin) 10 ml PO QID [facility] Last Admin: 09/30/18 07:53 Dose: 10 ml Ondansetron HCl (Zofran Odt) 4 mg PO Q4H PRN PRN Reason: nausea, able to take PO Last Admin: 09/27/18 12:54 Dose: 4 mg Ondansetron HCl (Zofran) 4 mg IV Q4H PRN PRN Reason: Nausea/Vomiting Pantoprazole Sodium (Protonix Iv) 40 mg IVPUSH DAILY [facility] Last Admin: 09/30/18 07:53 Dose: 40 mg Sodium Chloride (Saline Flush) 10 ml FLUSH ASDIRECTED PRN PRN Reason: Keep Vein Open Temazepam (Restoril) 15 mg PO BEDTIME PRN PRN Reason: Sleep - Exam General: Reports: Alert, Oriented HEENT: Reports: Mucous Membr. Moist/[place] Neck: Reports: Supple Lungs: Reports: Clear to Auscultation, Normal Respiratory Effort Cardiovascular: Reports: Irregular Rhythm GI/Abdominal Exam: Normal Bowel Sounds, Soft, Non-Tender Extremities: Normal Inspection, No Pedal Edema Skin: Reports: Warm, Dry Neurological: Reports: No New Focal Deficit
== END 2018-09-30 11:20 | disposition home or self-care (01) | DRG 368 ==
LOC: CC.ED 00:18 → UNDOADMOB 01:21 → CC.MS 01:21 → UNDOADMOB 01:47 → CC.MS 01:47 → INTOOBSV 09-28 14:57 → OBSVTOIN 09-28 14:57
PROVIDERS: ADMIT Physician Assistant Medical; ATTEND Family Medicine
PROC: 0DB68ZZ Excision of Stomach, Via Natural or Artificial Opening Endoscopic (ICD-10-PCS; principal; 2018-09-28)
PROC: 0DD18ZX Extraction of Upper Esophagus, Via Natural or Artificial Opening Endoscopic, Diagnostic (ICD-10-PCS; 2018-09-28)
DX: B37.81 Candidal esophagitis (principal); J69.0 Pneumonitis due to inhalation of food and vomit; R10.13 Epigastric pain; K80.20 Calculus of gallbladder without cholecystitis without obstruction; E86.0 Dehydration; R07.89 Other chest pain; I48.91 Unspecified atrial fibrillation; K57.30 Diverticulosis of large intestine without perforation or abscess without bleeding; H91.91 Unspecified hearing loss, right ear; I10 Essential (primary) hypertension; K21.9 Gastro-esophageal reflux disease without esophagitis; E03.9 Hypothyroidism, unspecified; M19.90 Unspecified osteoarthritis, unspecified site; Z96.649 Presence of unspecified artificial hip joint; D13.1 Benign neoplasm of stomach; Z95.0 Presence of cardiac pacemaker; Z87.11 Personal history of peptic ulcer disease; Z79.82 Long term (current) use of aspirin; Z79.899 Other long term (current) drug therapy; Z88.1 Allergy status to other antibiotic agents
CPT/HCPCS: 36415; 74177; 80048; 82550; 83615; 83690; 84484; 85025; 85610; 86140; 87070; 93005; 96360; 96361; 96372; 96374; 96376; 99285-25; A9270-GY; C9113; G0378; J1650; J2175; J2250; J3490; J7030; J7120; Q9967

== ENCOUNTER 2019-03-31 18:27 | Emergency (ER) | payer MEDICARE, BC ==
[2019-03-31] MEDS ORDERED: Diphtheria,Pertussis(Acell),Tetanus Vaccine 0.5 ML Syringe IM ONE (18:39)
[2019-03-31] MEDS ORDERED: Bacitracin/Neomycin/Polymyxin B Oint 0.9 GM U/D Packet ONE (18:53)
--- NOTE | 2019-03-31 19:08 | EDM.PDOC ---
ED HPI GENERAL MEDICAL PROBLEM - General Chief Complaint: Head Injury Stated Complaint: "Fell forward" Time Seen by Provider: 03/31/19 18:29 Source of Information: Reports: Patient History Limitations: Reports: No Limitations - History of Present Illness INITIAL COMMENTS - FREE TEXT/NARRATIVE: This patient is an 78 year old male that presents to the ER. Patient arrives via [facility]. Patient is fall on Eliquis. TRAUMA CODE CALLED. Patient reports that he was at home in kitchen, bent forward to steel pickler his cane off the ground and fell forward hitting his head. The patient reports that he fell forward due to old grain truck injury that fell on him leaving him with lumbar fractures in the past. He reports he is not able to bend and move like he used to since before that years ago. The patient reports that was the cause of his fall. He reports that he did not have any chest pain, shortness of breath, lightheaded, dizzy, abd pain, urinary/bowel changes. Patient denies any complaints nonmechanical causing his fall. Patient is alert and oriented. Patient denies any pain. He denies loc, headache, n, v, vision changes, neck pain. Patient undressed for exam. No labs are done, as [facility] does not have labs, and no other labs warranted due to mechanical fall. No EKG done, as mechanical fall presented. Patient does have known a-fib, rate is less than 100 , on Eliis for this. No CXR done as no chest pain, dyspnea, pain injury from fall. Will head/cervical ct. No IV needed. Onset: Today Location: Reports: Head Front/Back Body Image: 1 - hematoma 2 - skin tear Severity: Mild Improves with: Reports: None Worsens with: Reports: None Associated Symptoms: Denies: Confusion, Chest Pain, Cough, cough w sputum, Diaphoresis, Fever/Chills, Headaches, Loss of Appetite, Malaise, Nausea/Vomiting , Rash, Seizure, Shortness of Breath, Syncope, Weakness - Related Data Allergies Allergy/AdvReac Type Severity Reaction Status Date / Time cefuroxime axetil Allergy Cannot Verified 03/31/19 19:17 [From Ceftin] Remember clarithromycin [From Biaxin] Allergy Cannot Verified 03/31/19 19:17 Remember doxycycline Allergy Cannot Verified 03/31/19 19:17 Remember Home Meds: Home Meds Allopurinol [Zyloprim] 300 mg PO DAILY 01/31/15 [History] Ascorbic Acid [Vitamin C] 1 tab PO DAILY 01/31/15 [History] Cholecalciferol (Vitamin D3) [Vitamin D] 1 tab PO DAILY 01/31/15 [History] Levothyroxine 150 mcg PO ACBREAKFAST 01/31/15 [History] Multivitamin [Multivitamins] 1 tab PO DAILY 01/31/15 [History] amLODIPine [Norvasc] 5 mg PO DAILY 01/31/15 [History] Pantoprazole [ProTONIX] 40 mg PO DAILY 04/29/16 [History] Apixaban [Eliquis] 5 mg PO BID 03/31/19 [History] Past Medical History HEENT History: Reports: Cataract, Hard of Hearing, Other (See Below) 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 Cardiovascular History: Reports: Hypertension, Pacemaker, Other (See Below) Other Cardiovascular History: bradycardia Respiratory History: Reports: Sleep Apnea Gastrointestinal History: Reports: GERD, PUD Genitourinary History: Reports: Renal Calculus Musculoskeletal History: Reports: Arthritis, Back Pain, Chronic, Fracture, Gout Neurological History: Reports: Vertigo Psychiatric History: Reports: Anxiety, Dementia, Depression Endocrine/Metabolic History: Reports: Hypothyroidism - Infectious Disease History Infectious Disease History: Reports: C-Difficile - Past Surgical History HEENT Surgical History: Reports: Other (See Below) Other HEENT Surgeries/Procedures: multiple right ear surgeries Cardiovascular Surgical History: Reports: None Respiratory Surgical History: Reports: None GI Surgical History: Reports: Colonoscopy Endocrine Surgical History: Reports: None Neurological Surgical History: Reports: Spinal Fusion Musculoskeletal Surgical History: Reports: Hip Replacement, Knee Replacement, Shoulder Surgery, Other (See Below) Social & Family History - Family History Family Medical History: Noncontributory - Caffeine Use Caffeine Use: Reports: None - Living Situation & Occupation Living situation: Reports: Occupation: Employed ED ROS GENERAL - Review of Systems Review Of Systems: See Below Constitutional: Reports: No Symptoms HEENT: Reports: No Symptoms Respiratory: Reports: No Symptoms. Denies: Shortness of Breath, Wheezing, Pleuritic Chest Pain, Cough Cardiovascular: Reports: No Symptoms. Denies: Chest Pain, Dyspnea on Exertion, Edema, Lightheadedness, Palpitations, Syncope Endocrine: Reports: No Symptoms GI/Abdominal: Reports: No Symptoms. Denies: Abdominal Pain, Black Stool, Bloody Stool, Nausea, Vomiting : Reports: No Symptoms. Denies: Dysuria Musculoskeletal: Reports: Shoulder Pain (right shoulder pain with movement chronic. Years, unchanged from fall today. ). Denies: Neck Pain, Back Pain Skin: Reports: Wound (left forearm) Neurological: Reports: No Symptoms. Denies: Confusion, Dizziness, Headache, Numbness, Seizure, Syncope, Tingling, Trouble Speaking, Difficulty Walking, Weakness, Change in Speech, Gait Disturbance Psychiatric: Reports: No Symptoms Hematologic/Lymphatic: Reports: No Symptoms Immunologic: Reports: No Symptoms ED EXAM, HEAD INJURY - Physical Exam Exam: See Below Exam Limited By: No Limitations General Appearance: Alert, WD/WN, No Apparent Distress Head: Scalp Abrasions (left frontal over hematoma), Scalp Hematoma (left frontal ), Scalp Tenderness (mild left frontal over hematoma). No: Scalp Lacerations, Scalp Ecchymosis, Active Bleeding, Kumari's Sign, Flap, Facial Abrasions, Facial Ecchymosis, Facial Lacerations, Facial Swelling, Sinus Tenderness, Facial Tenderness, Raccoon Eyes Nexus Criteria: No: Posterior, Midline Cervical Tenderness, Evidence of Intoxication, Altered Level of Consciousness, Focal Neurological Deficit, Painful Distraction Injuries Eyes: Bilateral Eye: EOMI, Normal Inspection, PERRL Ears: Normal External Exam, Normal Canal, Hearing Grossly Normal, Normal TMs ( left hearing aid removed for exam, put back. ) Nose: Normal Inspection, Normal Mucousa Throat/Mouth: Normal Inspection, Normal Lips, Normal Teeth, Normal Gums, Normal Oropharynx, Normal Voice, No Airway Compromise Neck: Non-Tender, Full Range of Motion, Normal Alignment, Normal Inspection. No : Abnormal Alignment, Limited Range of Motion, Muscle Spasm, Painful Range of Motion, Paraspinous Muscle Tender, Spinous Processes Tender, Stiff Neck, Tenderness, Tender Lateral, Tender Midline Respiratory: No Respiratory Distress, Lungs Clear, Normal Breath Sounds, No Accessory Muscle Use, Chest Non-Tender Cardiovascular: Normal Peripheral Pulses, No Edema, No Gallop, No JVD, No Murmur , No Rub, Irregularly Irregular (rate 60) GI/Abdominal Exam: Normal Bowel Sounds, Soft, Non-Tender, No Organomegaly, No Distention, No Abnormal Bruit, No Mass, Pelvis Stable (Male) Exam: Deferred Rectal (Males) Exam: Deferred Back Exam: Normal Inspection, Full Range of Motion. No: CVA Tenderness (L), CVA Tenderness (R), Decreased Range of Motion, Muscle Spasm, Paraspinal Tenderness, Vertebral Tenderness Extremities: Normal Inspection, Normal Range of Motion, Non-Tender, No Pedal Edema, Normal Capillary Refill Neurologic: No Motor/Sensory Deficits, Alert, Normal Mood/Affect, Oriented x 3 Skin: Normal Color, Other (skin tear left distal forearm. ) - Donald Coma Score Best Eye Response ([place]): (4) Open Spontaneously Best Verbal Response ([place]): (5) Oriented Best Motor Response ([place]): (6) Obeys Commands [place] Total: 15 Course - Orders/Labs/Meds Orders: Active Orders 24 hr Category Date Time Status Vaccines to be Administered [RC] PER UNIT ROUTINE Care 03/31/19 18:39 Active Cervical Spine wo Cont [CT] Stat Exams 03/31/19 18:38 Taken Head wo Cont [CT] Stat Exams 03/31/19 18:38 Taken Meds: Medications Discontinued Medications Generic Name Dose Route Start Last Admin Trade Name Osmarq PRN Reason Stop Dose Admin Diphtheria/Tetanus/Acell Pertussis 0.5 ml 03/31/19 18:39 03/31/19 19:26 Adacel IM 03/31/19 18:40 0.5 ml .ONCE ONE Administration Neomycin/Polymyxin/Bacitracin Confirm 03/31/19 18:53 03/31/19 19:29 Triple Antibiotic Oint Administered 03/31/19 18:54 1 each Dose Administration 1 each .ROUTE .STK-MED ONE - Re-Assessments/Exams Free Text/Narrative Re-Assessment/Exam: 03/31/19 19:12 Patient ambulatory in the department without difficulty. Departure - Departure Time of Disposition: 20:12 Disposition: Home, Self-Care 01 Condition: Fair Clinical Impression: Hematoma Fall Qualifiers: Encounter type: initial encounter Qualified Code(s): W19.XXXA - Unspecified fall, initial encounter Head injury Qualifiers: Encounter type: initial encounter Qualified Code(s): S09.90XA - Unspecified injury of head, initial encounter - Discharge Information *PRESCRIPTION DRUG MONITORING PROGRAM REVIEWED*: Not Applicable *COPY OF PRESCRIPTION DRUG MONITORING REPORT IN PATIENT DEACON: Not Applicable Instructions: Head Injury, Adult, [id number], Hematoma, [id number] Forms: ED Department Discharge Additional Instructions: Followup with your primary care provider this Wednesday Return to the ER for worsening of condition or any emergent concerns Rest Ice area Tylenol for headache or pain Please return to ER emergently for seizures, lethargic, confusion, falls, chest pain, shortness of breath, vomiting, or any concerns - My Orders Last 24 Hours: My Active Orders 03/31/19 18:38 Cervical Spine wo Cont [CT] Stat Head wo Cont [CT] Stat 03/31/19 18:39 Vaccines to be Administered [RC] PER UNIT ROUTINE - Assessment/Plan Last 24 Hours: My Active Orders 03/31/19 18:38 Cervical Spine wo Cont [CT] Stat Head wo Cont [CT] Stat 03/31/19 18:39 Vaccines to be Administered [RC] PER UNIT ROUTINE Plan: PLEASE SEE RN NOTE FOR PFSH.
== END 2019-03-31 20:20 | disposition home or self-care (01) ==
LOC: CC.ED 18:27
DX: S00.03XA Contusion of scalp, initial encounter (principal); I10 Essential (primary) hypertension; K21.9 Gastro-esophageal reflux disease without esophagitis; F41.9 Anxiety disorder, unspecified; F32.9 Major depressive disorder, single episode, unspecified; Z23 Encounter for immunization; Z79.01 Long term (current) use of anticoagulants; Z88.1 Allergy status to other antibiotic agents; Z79.899 Other long term (current) drug therapy; W18.30XA Fall on same level, unspecified, initial encounter; W22.8XXA Striking against or struck by other objects, initial encounter; Y92.000 Kitchen of unspecified non-institutional (private) residence as the place of occurrence of the external cause
CPT/HCPCS: 70450; 72125; 90471; 90715; 99284; 99284-25

== ENCOUNTER 2019-04-04 17:20 | Inpatient (IN) | payer MEDICARE, BC ==
[2019-04-04] MEDS ORDERED: Ondansetron 4 MG/2 ML SDV IV PRN (17:55)
--- NOTE | 2019-04-04 19:20 | EDM.PDOC ---
ED HPI GENERAL MEDICAL PROBLEM - General Chief Complaint: Gastrointestinal Problem Stated Complaint: Nausea Time Seen by Provider: 04/04/19 17:40 Source of Information: Reports: Patient, EMS, RN History Limitations: Reports: No Limitations - History of Present Illness INITIAL COMMENTS - FREE TEXT/NARRATIVE: Sina is an 78 yo male who presents to the ED via [facility]. He is alert and orientated. States he started feeling nauseated earlyier today and had 1 episode of emesis. States he is concerned of his brain as he had a fall a few days ago hitting his head and was seen in the ED and underwent a scan of his brain. The scan was negative on Wednesday. States he is on a blood thinner and has a headache as well. States he was otherwise feeling fine today and was out playing piano for a few hours. His Vannesa states [place] he was holding his abdomen and wasn't feeling well. This is when he threw up. She states they were told if he had any nausea or any concerns at all to return to the ED. His called the ambulance. Since arrival he has had 1 episode of emesis as well. He denies any abdominal discomfort now. Left Headache Pain Score (Numeric/FACES): 4 - Related Data Allergies Allergy/AdvReac Type Severity Reaction Status Date / Time cefuroxime axetil Allergy Cannot Verified 04/04/19 17:30 [From Ceftin] Remember clarithromycin [From Biaxin] Allergy Cannot Verified 04/04/19 17:30 Remember doxycycline Allergy Cannot Verified 04/04/19 17:30 Remember Home Meds: Home Meds Allopurinol [Zyloprim] 300 mg PO DAILY 01/31/15 [History] Ascorbic Acid [Vitamin C] 1 tab PO DAILY 01/31/15 [History] Cholecalciferol (Vitamin D3) [Vitamin D] 1 tab PO DAILY 01/31/15 [History] Levothyroxine 150 mcg PO ACBREAKFAST 01/31/15 [History] Multivitamin [Multivitamins] 1 tab PO DAILY 01/31/15 [History] amLODIPine [Norvasc] 5 mg PO DAILY 01/31/15 [History] Pantoprazole [ProTONIX] 40 mg PO DAILY 04/29/16 [History] Apixaban [Eliquis] 5 mg PO BID 03/31/19 [History] Donepezil [Aricept] 5 mg pe PO DAILY 04/04/19 [History] Past Medical History HEENT History: Reports: Cataract, Hard of Hearing, Other (See Below) 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 Cardiovascular History: Reports: Hypertension, Pacemaker, Other (See Below) Other Cardiovascular History: bradycardia Respiratory History: Reports: Sleep Apnea Gastrointestinal History: Reports: GERD, PUD Genitourinary History: Reports: Renal Calculus Musculoskeletal History: Reports: Arthritis, Back Pain, Chronic, Fracture, Gout Neurological History: Reports: Vertigo Psychiatric History: Reports: Anxiety, Dementia, Depression Endocrine/Metabolic History: Reports: Hypothyroidism - Infectious Disease History Infectious Disease History: Reports: C-Difficile - Past Surgical History HEENT Surgical History: Reports: Other (See Below) Other HEENT Surgeries/Procedures: multiple right ear surgeries Cardiovascular Surgical History: Reports: None Respiratory Surgical History: Reports: None GI Surgical History: Reports: Colonoscopy Endocrine Surgical History: Reports: None Neurological Surgical History: Reports: Spinal Fusion Musculoskeletal Surgical History: Reports: Hip Replacement, Knee Replacement, Shoulder Surgery, Other (See Below) Social & Family History - Family History Family Medical History: Noncontributory - Tobacco Use Smoking Status *Q: Never Smoker Second Hand Smoke Exposure: No - Caffeine Use Caffeine Use: Reports: Coffee - Recreational Drug Use Recreational Drug Use: No - Living Situation & Occupation Living situation: Reports: Occupation: Employed ED ROS GENERAL - Review of Systems Review Of Systems: See Below Constitutional: Denies: Fever, Chills, Decreased Appetite HEENT: Denies: Vision Change Respiratory: Reports: No Symptoms Cardiovascular: Denies: Chest Pain, Palpitations GI/Abdominal: Reports: Nausea, Vomiting. Denies: Abdominal Pain, Constipation, Diarrhea : Reports: No Symptoms Musculoskeletal: Reports: No Symptoms Skin: Reports: Bruising (from prior left frontal area) Neurological: Reports: Headache, Pre-Existing Deficit. Denies: Seizure, Syncope , Gait Disturbance ED EXAM, GI/ABD - Physical Exam Exam: See Below Exam Limited By: No Limitations General Appearance: Alert, Active Emesis Eyes: Bilateral: Normal Appearance, EOMI Ears: Normal External Exam, Normal Canal, Hearing Grossly Normal, Normal TMs Nose: Normal Inspection, Normal Mucosa, No Blood Throat/Mouth: Normal Inspection, Normal Lips, Normal Gums, Normal Oropharynx, Normal Voice, No Airway Compromise Head: Other (Ecchymosis to left frontal area from prior fall) Neck: Normal Inspection, Supple, Non-Tender Respiratory/Chest: No Respiratory Distress, Lungs Clear, Normal Breath Sounds, No Accessory Muscle Use Cardiovascular: No Edema, No JVD, No Murmur, Irregularly Irregular GI/Abdominal Exam: Soft, Non-Tender, No Organomegaly, No Distention, Abnormal Bowel Sounds (hypoactive). No: Guarding Neurological: Alert, Oriented, Normal Cognition, No Motor/Sensory Deficits Psychiatric: Normal Affect, Normal Mood Skin Exam: Warm, Dry, Intact, Normal Color, No Rash Course - Vital Signs Last Recorded V/S: Last Vital Signs Temp 96.9 F 04/04/19 17:21 Pulse 77 04/04/19 17:21 Resp 14 04/04/19 17:21 BP 134/66 04/04/19 17:21 Pulse Ox 99 04/04/19 17:21 - Orders/Labs/Meds Orders: Active Orders 24 hr Category Date Time Status Abdomen 2V AP Flat Upright [CR] Stat Exams 04/04/19 17:55 Taken Head wo Cont [CT] Stat Exams 04/04/19 17:57 Taken Ondansetron [Zofran] Med 04/04/19 17:55 Active 4 mg IV Q4H PRN Medication Orders Ondansetron HCl (Zofran) 4 mg IV Q4H PRN PRN Reason: Nausea/Vomiting Last Admin: 04/04/19 18:12 Dose: 4 mg Labs: Laboratory Tests 04/04/19 04/04/19 04/04/19 Range/Units 18:05 18:05 18:05 WBC 10.6 H (5.0-10.0) 10^3/uL RBC 4.55 (4.50-6.00) 10^6/uL Hgb 15.8 (14.0-18.0) g/dL Hct 46.4 (40.0-54.0) % MCV 102.0 H (82.0-94.0) fL MCH 34.7 H (27.0-32.0) pg MCHC 34.1 (33.0-38.0) g/dL RDW Coeff of Nehemias 13.3 (11.0-15.0) % Plt Count 266 (150-400) 10^3/uL Neut % (Auto) 76.8 (35-85) % Lymph % (Auto) 11.9 (10-55) % Craig % (Auto) 10.1 (0-16) % Eos % (Auto) 1.1 (0-5) % Baso % (Auto) 0.1 (0-3) % Neut # (Auto) 8.09 H (1.80-7.00) 10^3/uL Lymph # (Auto) 1.26 (1.00-4.80) 10^3/uL Craig # (Auto) 1.07 H (0.00-0.80) 10^3/uL Eos # (Auto) 0.12 (0.00-0.45) 10^3/uL Baso # (Auto) 0.01 10^3/uL PT (9.7-12.3) SEC INR (0.92-1.18) APTT (23.2-32.3) SEC Sodium 141 (136-145) mEq/L Potassium 3.8 (3.5-5.0) mEq/L Chloride 104 (98-106) mEq/L Carbon Dioxide 28 (21-32) mmol/L BUN 26 H D (7-18) mg/dL Creatinine 1.2 (0.7-1.3) mg/dL Est Cr Clr Drug Dosing 53.89 mL/min Estimated GFR (MDRD) 58 L (>=60) mL/min Glucose 107 H D (75-99) mg/dL Lactic Acid 1.2 (0.4-2.0) mmol/L Calcium 9.6 (8.4-10.1) mg/dL Total Bilirubin 0.3 (0.0-1.0) mg/dL AST 33 (15-37) U/L ALT 35 (12-78) U/L Alkaline Phosphatase 61 (46-116) U/L C-Reactive Protein 0.4 (0.2-0.8) mg/dL Total Protein 7.0 (6.4-8.2) g/dL Albumin 3.9 (3.4-5.0) g/dL Amylase 58 (25-115) U/L Lipase 178 (73-393) U/L 04/04/19 Range/Units 18:05 WBC (5.0-10.0) 10^3/uL RBC (4.50-6.00) 10^6/uL Hgb (14.0-18.0) g/dL Hct (40.0-54.0) % MCV (82.0-94.0) fL MCH (27.0-32.0) pg MCHC (33.0-38.0) g/dL RDW Coeff of Nehemias (11.0-15.0) % Plt Count (150-400) 10^3/uL Neut % (Auto) (35-85) % Lymph % (Auto) (10-55) % Craig % (Auto) (0-16) % Eos % (Auto) (0-5) % Baso % (Auto) (0-3) % Neut # (Auto) (1.80-7.00) 10^3/uL Lymph # (Auto) (1.00-4.80) 10^3/uL Craig # (Auto) (0.00-0.80) 10^3/uL Eos # (Auto) (0.00-0.45) 10^3/uL Baso # (Auto) 10^3/uL PT 10.0 (9.7-12.3) SEC INR 0.97 (0.92-1.18) APTT 25.4 (23.2-32.3) SEC Sodium (136-145) mEq/L Potassium (3.5-5.0) mEq/L Chloride (98-106) mEq/L Carbon Dioxide (21-32) mmol/L BUN (7-18) mg/dL Creatinine (0.7-1.3) mg/dL Est Cr Clr Drug Dosing mL/min Estimated GFR (MDRD) (>=60) mL/min Glucose (75-99) mg/dL Lactic Acid (0.4-2.0) mmol/L Calcium (8.4-10.1) mg/dL Total Bilirubin (0.0-1.0) mg/dL AST (15-37) U/L ALT (12-78) U/L Alkaline Phosphatase (46-116) U/L C-Reactive Protein (0.2-0.8) mg/dL Total Protein (6.4-8.2) g/dL Albumin (3.4-5.0) g/dL Amylase (25-115) U/L Lipase (73-393) U/L Meds: Medications Generic Name Dose Route Start Last Admin Trade Name Freq PRN Reason Stop Dose Admin Ondansetron HCl 4 mg 04/04/19 17:55 04/04/19 18:12 Zofran IV 4 mg Q4H PRN Administration Nausea/Vomiting Departure - Departure Time of Disposition: 18:35 Disposition: Admitted As Inpatient 64 Clinical Impression: Ileus, unspecified - Discharge Information Referrals: Cris Laurent PA [Primary Care Provider] - - Problem List & Annotations (1) Ileus, unspecified SNOMED Code(s): 97288935 Code(s): K56.7 - ILEUS, UNSPECIFIED Status: Acute Current Visit: Yes - My Orders Last 24 Hours: My Active Orders 04/04/19 17:55 Abdomen 2V AP Flat Upright [CR] Stat Ondansetron [Zofran] 4 mg IV Q4H PRN 04/04/19 17:57 Head wo Cont [CT] Stat - Assessment/Plan Admission H&P: Please use this note as an admission H&P Last 24 Hours: My Active Orders 04/04/19 17:55 Abdomen 2V AP Flat Upright [CR] Stat Ondansetron [Zofran] 4 mg IV Q4H PRN 04/04/19 17:57 Head wo Cont [CT] Stat Plan: Will admit to Dr. Galvez's services under acute care. CT head was negative for any acute changes, stable from recent scan. Abdomen films did show an ileus with a few scattered air fluid levels. Will keep NPO tonight. No further vomiting since arrival. Zofran has been given. If any further emesis will consider NG placement. Discussed findings with Sina and his . Patient was transferred to floor in satisfactory condition.
[2019-04-04] MEDS ORDERED: Sodium Chloride 0.9% 1,000 ML IV SCH (19:55)
[2019-04-04] MEDS ORDERED: Acetaminophen 325 MG Tab PO PRN (19:55)
[2019-04-04] MEDS: Apixaban 5 MG Tab PO SCH (20:46)
[2019-04-05] MEDS: Pantoprazole 40 MG Tab.CR PO SCH (07:26)
[2019-04-05] MEDS: Levothyroxine 150 MCG Tab PO SCH (07:26)
[2019-04-05 07:48] LABS: CHLORIDE,CL 109 mEq/L (98-106); SODIUM,NA 143 mEq/L (136-145)
[2019-04-05] MEDS: Donepezil 5 MG Tab PO SCH (08:13)
[2019-04-05] MEDS: Apixaban 5 MG Tab PO SCH ×2 (08:13→20:01)
[2019-04-05] MEDS: amLODIPine 10 MG Tab PO SCH (08:14)
[2019-04-05] MEDS: Allopurinol 300 MG Tab PO SCH (08:15)
--- NOTE | 2019-04-05 08:17 | PCM.PN ---
- General Info Date of Service: 04/05/19 Admission Dx/Problem (Free Text): Ileus Subjective Update: Sina is an 78 year old male who was admitted to the hospital last evening from the ED for an ileus. He had reportedly had some nausea and emesis x 1 prior to calling EMS. Abdominal xray does show ileus. He reports that he has not had any further nausea or vomiting since admit. He denies any abdominal pain today. Has been NPO since admit. He reports he is feeling well this morning and has no complaints. Nursing staff reports he had a large soft BM this morning. He does seem somewhat confused, but this is patients baseline. Is very CIRCLE. Functional Status: Reports: Pain Controlled - Review of Systems General: Reports: No Symptoms. Denies: Fever, Weakness, Fatigue, Chills Pulmonary: Reports: No Symptoms. Denies: Shortness of Breath, Cough, Sputum Cardiovascular: Reports: No Symptoms. Denies: Chest Pain, Dyspnea on Exertion, Edema, Lightheadedness Gastrointestinal: Reports: Flatus. Denies: Abdominal Pain, Constipation, Decreased Appetite, Diarrhea, Nausea, Vomiting Genitourinary: Reports: No Symptoms. Denies: Dysuria, Frequency, Urgency Neurological: Denies: Confusion, Dizziness, Headache, Numbness, Tingling, Weakness Psychiatric: Reports: No Symptoms - Patient Data Vitals - Most Recent: Last Vital Signs Temp 98.9 F 04/05/19 04:00 Pulse 63 04/05/19 04:00 Resp 20 04/05/19 04:00 BP 156/65 H 04/05/19 08:14 Pulse Ox 96 04/05/19 04:00 Weight - Most Recent: 179 lb 3.2 oz Lab Results Last 24 Hours: Laboratory Results - last 24 hr 04/04/19 04/04/19 04/04/19 Range/Units 18:05 18:05 18:05 WBC 10.6 H (5.0-10.0) 10^3/uL RBC 4.55 (4.50-6.00) 10^6/uL Hgb 15.8 (14.0-18.0) g/dL Hct 46.4 (40.0-54.0) % MCV 102.0 H (82.0-94.0) fL MCH 34.7 H (27.0-32.0) pg MCHC 34.1 (33.0-38.0) g/dL RDW Coeff of Nehemias 13.3 (11.0-15.0) % Plt Count 266 (150-400) 10^3/uL Neut % (Auto) 76.8 (35-85) % Lymph % (Auto) 11.9 (10-55) % Hand % (Auto) 10.1 (0-16) % Eos % (Auto) 1.1 (0-5) % Baso % (Auto) 0.1 (0-3) % Neut # (Auto) 8.09 H (1.80-7.00) 10^3/uL Lymph # (Auto) 1.26 (1.00-4.80) 10^3/uL Hand # (Auto) 1.07 H (0.00-0.80) 10^3/uL Eos # (Auto) 0.12 (0.00-0.45) 10^3/uL Baso # (Auto) 0.01 10^3/uL PT (9.7-12.3) SEC INR (0.92-1.18) APTT (23.2-32.3) SEC Sodium 141 (136-145) mEq/L Potassium 3.8 (3.5-5.0) mEq/L Chloride 104 (98-106) mEq/L Carbon Dioxide 28 (21-32) mmol/L BUN 26 H D (7-18) mg/dL Creatinine 1.2 (0.7-1.3) mg/dL Est Cr Clr Drug Dosing 53.89 mL/min Estimated GFR (MDRD) 58 L (>=60) mL/min Glucose 107 H D (75-99) mg/dL Lactic Acid 1.2 (0.4-2.0) mmol/L Calcium 9.6 (8.4-10.1) mg/dL Total Bilirubin 0.3 (0.0-1.0) mg/dL AST 33 (15-37) U/L ALT 35 (12-78) U/L Alkaline Phosphatase 61 (46-116) U/L C-Reactive Protein 0.4 (0.2-0.8) mg/dL Total Protein 7.0 (6.4-8.2) g/dL Albumin 3.9 (3.4-5.0) g/dL Amylase 58 (25-115) U/L Lipase 178 (73-393) U/L Urine Color (YELLOW) Urine Appearance (CLEAR) Urine pH (4.5-8.0) Ur Specific [place] (1.003-1.020) Urine Protein (NEGATIVE) mg/dL Urine Glucose (UA) (NEGATIVE) mg/dL Urine Ketones (NEGATIVE) mg/dL Urine Occult Blood (NEGATIVE) Urine Nitrite (NEGATIVE) Urine Bilirubin (NEGATIVE) Urine Urobilinogen (0.2-1.0) EU/dL Ur Leukocyte Esterase (NEGATIVE) Urine RBC (0-5) /HPF Urine WBC (0-5) /HPF Ur Squamous Epith Cells (NOT SEEN) /HPF Urine Mucus (NOT SEEN) /HPF 04/04/19 04/05/19 04/05/19 Range/Units 18:05 00:13 07:00 WBC 4.9 L (5.0-10.0) 10^3/uL RBC 3.96 L (4.50-6.00) 10^6/uL Hgb 13.6 L (14.0-18.0) g/dL Hct 40.7 (40.0-54.0) % MCV 102.8 H (82.0-94.0) fL MCH 34.3 H (27.0-32.0) pg MCHC 33.4 (33.0-38.0) g/dL RDW Coeff of Nehemias 13.4 (11.0-15.0) % Plt Count 243 (150-400) 10^3/uL Neut % (Auto) 58.8 (35-85) % Lymph % (Auto) 24.4 (10-55) % Hand % (Auto) 12.9 (0-16) % Eos % (Auto) 3.7 (0-5) % Baso % (Auto) 0.2 (0-3) % Neut # (Auto) 2.86 (1.80-7.00) 10^3/uL Lymph # (Auto) 1.19 (1.00-4.80) 10^3/uL Hand # (Auto) 0.63 (0.00-0.80) 10^3/uL Eos # (Auto) 0.18 (0.00-0.45) 10^3/uL Baso # (Auto) 0.01 10^3/uL PT 10.0 (9.7-12.3) SEC INR 0.97 (0.92-1.18) APTT 25.4 (23.2-32.3) SEC Sodium (136-145) mEq/L Potassium (3.5-5.0) mEq/L Chloride (98-106) mEq/L Carbon Dioxide (21-32) mmol/L BUN (7-18) mg/dL Creatinine (0.7-1.3) mg/dL Est Cr Clr Drug Dosing mL/min Estimated GFR (MDRD) (>=60) mL/min Glucose (75-99) mg/dL Lactic Acid (0.4-2.0) mmol/L Calcium (8.4-10.1) mg/dL Total Bilirubin (0.0-1.0) mg/dL AST (15-37) U/L ALT (12-78) U/L Alkaline Phosphatase (46-116) U/L C-Reactive Protein (0.2-0.8) mg/dL Total Protein (6.4-8.2) g/dL Albumin (3.4-5.0) g/dL Amylase (25-115) U/L Lipase (73-393) U/L Urine Color Yellow (YELLOW) Urine Appearance Clear (CLEAR) Urine pH 6.0 (4.5-8.0) Ur Specific [place] 1.020 (1.003-1.020) Urine Protein Negative (NEGATIVE) mg/dL Urine Glucose (UA) Negative (NEGATIVE) mg/dL Urine Ketones Negative (NEGATIVE) mg/dL Urine Occult Blood Negative (NEGATIVE) Urine Nitrite Negative (NEGATIVE) Urine Bilirubin Negative (NEGATIVE) Urine Urobilinogen 0.2 (0.2-1.0) EU/dL Ur Leukocyte Esterase Negative (NEGATIVE) Urine RBC Not seen (0-5) /HPF Urine WBC 0-5 (0-5) /HPF Ur Squamous Epith Cells Rare (NOT SEEN) /HPF Urine Mucus Occasional H (NOT SEEN) /HPF 04/05/19 Range/Units 07:00 WBC (5.0-10.0) 10^3/uL RBC (4.50-6.00) 10^6/uL Hgb (14.0-18.0) g/dL Hct (40.0-54.0) % MCV (82.0-94.0) fL MCH (27.0-32.0) pg MCHC (33.0-38.0) g/dL RDW Coeff of Nehemias (11.0-15.0) % Plt Count (150-400) 10^3/uL Neut % (Auto) (35-85) % Lymph % (Auto) (10-55) % Hand % (Auto) (0-16) % Eos % (Auto) (0-5) % Baso % (Auto) (0-3) % Neut # (Auto) (1.80-7.00) 10^3/uL Lymph # (Auto) (1.00-4.80) 10^3/uL Hand # (Auto) (0.00-0.80) 10^3/uL Eos # (Auto) (0.00-0.45) 10^3/uL Baso # (Auto) 10^3/uL PT (9.7-12.3) SEC INR (0.92-1.18) APTT (23.2-32.3) SEC Sodium 143 (136-145) mEq/L Potassium 4.7 D (3.5-5.0) mEq/L Chloride 109 H (98-106) mEq/L Carbon Dioxide 30 (21-32) mmol/L BUN 20 H (7-18) mg/dL Creatinine 0.9 (0.7-1.3) mg/dL Est Cr Clr Drug Dosing 71.85 mL/min Estimated GFR (MDRD) > 60 (>=60) mL/min Glucose 88 (75-99) mg/dL Lactic Acid (0.4-2.0) mmol/L Calcium 8.7 (8.4-10.1) mg/dL Total Bilirubin (0.0-1.0) mg/dL AST (15-37) U/L ALT (12-78) U/L Alkaline Phosphatase (46-116) U/L C-Reactive Protein 1.0 H (0.2-0.8) mg/dL Total Protein (6.4-8.2) g/dL Albumin (3.4-5.0) g/dL Amylase (25-115) U/L Lipase (73-393) U/L Urine Color (YELLOW) Urine Appearance (CLEAR) Urine pH (4.5-8.0) Ur Specific [place] (1.003-1.020) Urine Protein (NEGATIVE) mg/dL Urine Glucose (UA) (NEGATIVE) mg/dL Urine Ketones (NEGATIVE) mg/dL Urine Occult Blood (NEGATIVE) Urine Nitrite (NEGATIVE) Urine Bilirubin (NEGATIVE) Urine Urobilinogen (0.2-1.0) EU/dL Ur Leukocyte Esterase (NEGATIVE) Urine RBC (0-5) /HPF Urine WBC (0-5) /HPF Ur Squamous Epith Cells (NOT SEEN) /HPF Urine Mucus (NOT SEEN) /HPF Med Orders - Current: Current Medications Acetaminophen (Tylenol) 650 mg PO Q4H PRN PRN Reason: Pain (Mild 1-3)/fever Last Admin: 04/04/19 20:46 Dose: 650 mg Allopurinol (Zyloprim) 300 mg PO DAILY [facility] Last Admin: 04/05/19 08:15 Dose: 300 mg Amlodipine Besylate (Norvasc) 5 mg PO DAILY [facility] Last Admin: 04/05/19 08:14 Dose: 5 mg Apixaban (Eliquis) 5 mg PO BID [facility] Last Admin: 04/05/19 08:13 Dose: 5 mg Donepezil HCl (Aricept) 5 mg PO DAILY [facility] Last Admin: 04/05/19 08:13 Dose: 5 mg Sodium Chloride (Normal Saline) 1,000 mls @ 75 mls/hr IV ASDIRECTED [facility] Last Admin: 04/04/19 20:41 Dose: 75 mls/hr Levothyroxine Sodium (Levothyroxine) 150 mcg PO ACBREAKFAST [facility] Last Admin: 04/05/19 07:26 Dose: 150 mcg Ondansetron HCl (Zofran) 4 mg IV Q4H PRN PRN Reason: Nausea/Vomiting Last Admin: 04/04/19 18:12 Dose: 4 mg Pantoprazole Sodium (Protonix) 40 mg PO ACBREAKFAST [facility] Last Admin: 04/05/19 07:26 Dose: 40 mg - Exam Quality Assessment: DVT Prophylaxis General: Alert, Oriented (to person & place, difficulty with time), No Acute Distress Neck: Supple Lungs: Clear to Auscultation, Normal Respiratory Effort Cardiovascular: Regular Rate, Regular Rhythm GI/Abdominal Exam: Soft, Non-Tender, No Distention, Abnormal Bowel Sounds ( hypoactive in bilateral upper quadrants, active lower quadrants) Extremities: Normal Inspection, Normal Range of Motion, Non-Tender, No Pedal Edema, Normal Capillary Refill Neurological: No New Focal Deficit Psy/Mental Status: Alert, Normal Affect, Normal Mood - Problem List & Annotations (1) Ileus, unspecified SNOMED Code(s): 67795288 Code(s): K56.7 - ILEUS, UNSPECIFIED Status: Acute Current Visit: Yes - Problem List Review Problem List Initiated/Reviewed/Updated: Yes - Assessment Assessment:: Ileus - Plan Plan:: Patient has bowel sounds and is passing flatus. Did have large soft BM this morning as well as another soft BM shortly after. Will saline lock IV. Encourage frequent ambulation. Advance diet as tolerated. Will start with clears for breakfast and nursing to advance as tolerated. Labs all stable. Consult to PT for balance/strengthening. Patient has had multiple falls recently. Consult to case management for assessment of home safety and any discharge needs. Repeat labs in am. If patient able to tolerate advanced diet, may be able to discharge home tomorrow.
[2019-04-06] MEDS: Levothyroxine 150 MCG Tab PO SCH (06:47)
[2019-04-06] MEDS: Pantoprazole 40 MG Tab.CR PO SCH (06:47)
[2019-04-06] MEDS: amLODIPine 10 MG Tab PO SCH (08:36)
[2019-04-06] MEDS: Donepezil 5 MG Tab PO SCH (08:36)
[2019-04-06 08:37] VITALS: BP 155/76
[2019-04-06] MEDS: Allopurinol 300 MG Tab PO SCH (08:37)
[2019-04-06] MEDS: Apixaban 5 MG Tab PO SCH (08:37)
[2019-04-06 08:38] VITALS: PULSE 68
--- NOTE | 2019-04-06 09:00 | PCM.DCSUM1 ---
Discharge Summary - Hospital Course HPI Initial Comments: Sina is an 78 year old male who was admitted to the hospital from the ED on for ileus. Presented to the ED via EMS with c/o nausea and vomiting. Was also concerned as he fell and hit his head a few days prior. DId have Ct head which was negative. Abdominal films did show ileus with multiple air fluid levels. He was kept NPO. On hospital day 1, he had 2 large BMs. Diet was advanced and patient tolerated without difficulty. He had no further abdominal pain, nausea, or vomiting. On day of discharge he was tolerating a regular diet and was having normal bowel movements. Was passing flatus. He had no complaints. Repeat abdominal films did show improvement of ileus. Labs were stable throughout hospital stay. VS stable throughout stay as well. Patient will be discharged home. He is advised to start a daily stool softener. Follow up with PCP for recheck next week. - Discharge Data Discharge Date: 04/06/19 Discharge Disposition: Home, Self-Care 01 Condition: Stable - Referral to Home Health Primary Care Physician: ARMEN Jones - Discharge Diagnosis/Problem(s) (1) Ileus, unspecified SNOMED Code(s): 83123917 ICD Code: K56.7 - ILEUS, UNSPECIFIED Status: Acute - Patient Summary/Data Consults: Consultations 04/05/19 13:00 Consult to Case Management/Workers Compensation Analyst [CONS] Routine PT Evaluation and Treatment [CONS] Routine - Patient Instructions Diet: Usual Diet as Tolerated, Drink 8-10+ Glasses/Day Activity: As Tolerated Notify Provider of: Fever, Increased Pain, Nausea and/or Vomiting - Discharge Plan *PRESCRIPTION DRUG MONITORING PROGRAM REVIEWED*: Not Applicable *COPY OF PRESCRIPTION DRUG MONITORING REPORT IN PATIENT DEACON: Not Applicable Prescriptions/Med Rec: Docusate Sodium [Stool Softener] 100 mg PO DAILY #30 capsule Home Medications: Home Meds Allopurinol [Zyloprim] 300 mg PO DAILY 01/31/15 [History] Ascorbic Acid [Vitamin C] 1 tab PO DAILY 01/31/15 [History] Cholecalciferol (Vitamin D3) [Vitamin D3] 1 tab PO DAILY 01/31/15 [History] Levothyroxine 150 mcg PO ACBREAKFAST 01/31/15 [History] Multivitamin [Multivitamins] 1 tab PO DAILY 01/31/15 [History] amLODIPine [Norvasc] 5 mg PO DAILY 01/31/15 [History] Pantoprazole [ProTONIX] 40 mg PO DAILY 04/29/16 [History] Apixaban [Eliquis] 5 mg PO BID 03/31/19 [History] Donepezil [Aricept] 5 mg pe PO DAILY 04/04/19 [History] Docusate Sodium [Stool Softener] 100 mg PO DAILY #30 capsule 04/06/19 [Rx] Patient Handouts: Ileus Forms: ED Department Discharge Referrals: Cris Laurent PA [Primary Care Provider] - - Discharge Summary/Plan Comment DC Time >30 min.: No - General Info Date of Service: 04/06/19 Admission Dx/Problem (Free Text: Ileus Functional Status: Reports: Pain Controlled, Tolerating Diet, Ambulating, Urinating. Denies: New Symptoms - Review of Systems General: Reports: No Symptoms. Denies: Fever, Weakness, Fatigue, Chills Pulmonary: Reports: No Symptoms Cardiovascular: Reports: No Symptoms Gastrointestinal: Reports: No Symptoms, Flatus. Denies: Abdominal Pain, Constipation, Decreased Appetite, Diarrhea, Nausea, Vomiting Genitourinary: Reports: No Symptoms Musculoskeletal: Reports: No Symptoms Skin: Reports: No Symptoms Neurological: Reports: No Symptoms - Patient Data Vitals - Most Recent: Last Vital Signs Temp 98.7 F 04/06/19 08:00 Pulse 68 04/06/19 08:00 Resp 18 04/06/19 08:00 BP 155/76 H 04/06/19 08:36 Pulse Ox 99 04/06/19 08:00 Weight - Most Recent: 179 lb 3.2 oz Med Orders - Current: Current Medications Acetaminophen (Tylenol) 650 mg PO Q4H PRN PRN Reason: Pain (Mild 1-3)/fever Last Admin: 04/04/19 20:46 Dose: 650 mg Allopurinol (Zyloprim) 300 mg PO DAILY [facility] Last Admin: 04/06/19 08:37 Dose: 300 mg Amlodipine Besylate (Norvasc) 5 mg PO DAILY [facility] Last Admin: 04/06/19 08:36 Dose: 5 mg Apixaban (Eliquis) 5 mg PO BID [facility] Last Admin: 04/06/19 08:37 Dose: 5 mg Donepezil HCl (Aricept) 5 mg PO DAILY [facility] Last Admin: 04/06/19 08:36 Dose: 5 mg Levothyroxine Sodium (Levothyroxine) 150 mcg PO ACBREAKFAST [facility] Last Admin: 04/06/19 06:47 Dose: 150 mcg Ondansetron HCl (Zofran) 4 mg IV Q4H PRN PRN Reason: Nausea/Vomiting Last Admin: 04/04/19 18:12 Dose: 4 mg Pantoprazole Sodium (Protonix) 40 mg PO ACBREAKFAST [facility] Last Admin: 04/06/19 06:47 Dose: 40 mg Discontinued Medications Sodium Chloride (Normal Saline) 1,000 mls @ 75 mls/hr IV ASDIRECTED [facility] Last Admin: 04/04/19 20:41 Dose: 75 mls/hr - Exam Quality Assessment: Reports: DVT Prophylaxis General: Reports: Alert, Oriented, No Acute Distress Neck: Reports: Supple Lungs: Reports: Clear to Auscultation, Normal Respiratory Effort Cardiovascular: Reports: Regular Rate, Regular Rhythm GI/Abdominal Exam: Normal Bowel Sounds, Soft, Non-Tender, No Organomegaly, No Distention Extremities: Normal Inspection, Normal Range of Motion, Non-Tender, No Pedal Edema, Normal Capillary Refill Neurological: Reports: No New Focal Deficit Psy/Mental Status: Reports: Alert, Normal Affect, Normal Mood
== END 2019-04-06 11:40 | disposition home or self-care (01) | DRG 390 ==
LOC: CC.ED 17:20 → UNDOADMIN 18:35 → CC.MS 18:35
PROVIDERS: ADMIT Physician Assistant Medical; ATTEND Family Medicine
DX: K56.7 Ileus, unspecified (principal); R51 Headache; R11.2 Nausea with vomiting, unspecified; I10 Essential (primary) hypertension; E03.9 Hypothyroidism, unspecified; K21.9 Gastro-esophageal reflux disease without esophagitis; G47.30 Sleep apnea, unspecified; M19.90 Unspecified osteoarthritis, unspecified site; M54.9 Dorsalgia, unspecified; G89.29 Other chronic pain; M10.9 Gout, unspecified; Z96.659 Presence of unspecified artificial knee joint; F41.9 Anxiety disorder, unspecified; Z96.649 Presence of unspecified artificial hip joint; F32.9 Major depressive disorder, single episode, unspecified; H91.91 Unspecified hearing loss, right ear; F03.90 Unspecified dementia, unspecified severity, without behavioral disturbance, psychotic disturbance, mood disturbance, and anxiety; Z98.1 Arthrodesis status; Z79.899 Other long term (current) drug therapy; Z88.1 Allergy status to other antibiotic agents; Z95.0 Presence of cardiac pacemaker; Z87.442 Personal history of urinary calculi
CPT/HCPCS: 36415; 70450; 74019; 80048; 80053; 81001; 82150; 83605; 83690; 85025; 85610; 85730; 86140; 96374; 97161-GP; 99285-25; A9270-GY; J2405; J7030

== ENCOUNTER 2021-03-11 16:49 | Observation (INO) | payer MEDICARE, BC ==
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
[2021-03-11] MEDS ORDERED: fentaNYL 50 MCG/ML SDV IVPUSH PRN (19:42)
[2021-03-11] MEDS ORDERED: Sodium Chloride 0.9% 10 ML Syringe FLUSH PRN (19:42)
[2021-03-11] MEDS ORDERED: Acetaminophen 325 MG Tab PO PRN (19:42)
[2021-03-11] MEDS ORDERED: Ondansetron 4 MG Tab.DIS PO PRN (19:42)
[2021-03-11] MEDS ORDERED: Ondansetron 4 MG/2 ML SDV IV PRN (19:42)
[2021-03-11] MEDS ORDERED: amLODIPine 10 MG Tab PO SCH (20:00)
[2021-03-11] MEDS ORDERED: Polyethylene Glycol 3350 Powder 17 GM Packet PO PRN (20:27)
[2021-03-11] MEDS: Apixaban 5 MG Tab PO SCH (20:51)
[2021-03-11] MEDS: Acetaminophen/HYDROcodone 325-5 MG Tab PO PRN (20:51)
[2021-03-12] MEDS: Acetaminophen/HYDROcodone 325-5 MG Tab PO PRN ×3 (05:02→19:43)
[2021-03-12] MEDS: Acetaminophen 325 MG Tab PO SCH (06:35)
[2021-03-12] MEDS ORDERED: Levothyroxine 150 MCG Tab PO SCH (07:00)
[2021-03-12] MEDS ORDERED: Donepezil 5 MG Tab PO SCH (08:00)
[2021-03-12] MEDS ORDERED: Take Home: Pantoprazole 40 MG Tab.CR, 1 Tab Pack PO SCH (08:00)
[2021-03-12] MEDS ORDERED: Bacitracin/Neomycin/Polymyxin B Oint 0.9 GM U/D Packet TOP PRN (09:35)
[2021-03-12] MEDS ORDERED: LEVOTHYROXINE 150 MCG PO SCH (10:47)
[2021-03-12] MEDS: Apixaban 5 MG Tab PO SCH (10:56)
[2021-03-12] MEDS: DULOXETINE 20 MG PO SCH (11:41)
[2021-03-12] MEDS: DONEPEZIL 10 MG PO SCH (11:41)
[2021-03-12] MEDS: Pantoprazole 40 MG Tab.CR **PTOM PO SCH (11:41)
--- NOTE | 2021-03-12 11:58 | PN ---
DATE: 03/12/2021 S: Sina is a very active 80-year-old who fell in his shop last night and ended up fracturing ribs 9 and 10. He was having a very hard time with any movement and he was admitted for pain control and aggressive PT. For the most part he has done fine since here. His vital signs have been stable. He is maintaining his sats in the upper 90s on room air. O: VITAL SIGNS: He is afebrile. HEENT: Grossly benign. NECK: Neck veins are nondistended. LUNGS: Lung sounds are clear to both bases, most notably on the right, very palpable in the lower ribcage on that side as expected. ABDOMEN: He has no abdominal pain in the right upper quadrant or in the flank. Good bowel sounds throughout. No peripheral edema. ASSESSMENT: 1. FALL WITH RIB FRACTURES. 2. HYPERTENSION. 3. CHRONIC ATRIAL FIBRILLATION WITH ANTICOAGULATION. 4. HYPOTHYROIDISM. P: The patient has already been started on incentive spirometry. PT consult is in place for ambulation. We will continue with p.r.n. pain control. I expect the patient to do just fine. DANIELLE/INOCENCIO /[id number]
[2021-03-13] MEDS: Acetaminophen 325 MG Tab PO SCH (08:17)
[2021-03-13] MEDS: DONEPEZIL 10 MG PO SCH (08:18)
[2021-03-13] MEDS: Pantoprazole 40 MG Tab.CR **PTOM PO SCH (08:19)
[2021-03-13] MEDS: DULOXETINE 20 MG PO SCH (08:19)
[2021-03-13 08:21] VITALS: BP 169/76; PULSE 72
--- NOTE | 2021-03-13 10:56 | DISCH ---
ADMISSION DIAGNOSES: 1. Fall with multiple rib fractures. 2. Hypertension. 3. Chronic atrial fibrillation. 4. Hypothyroidism. 5. Dementia. DISCHARGE DIAGNOSIS: 1. FALL WITH MULTIPLE RIB FRACTURES. 2. HYPERTENSION. 3. CHRONIC ATRIAL FIBRILLATION. 4. HYPOTHYROIDISM. 5. DEMENTIA. HISTORY: The patient is an active 80-year-old male who lives in [place]. 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 Because of his pain, Charity Laurent put him in for observation for pain control and PT. HOSPITAL COURSE: The patient has done very well since here. He has been eating and drinking fine. He is having no hypoxia. He is breathing well without a lot of pain. He has been up and ambulating. PT has been working with him and really at this point they have no concerns. He definitely has some memory impairment, but this is unchanged with this fall, and he will follow up with Charity Laurent, his primary provider, in a week for a recheck in that regard. COMPLICATIONS: During his stay were none. CONSULTATIONS: PT. DISPOSITION: Discharged to home. DANIELLE/INOCENCIO /[id number]
== END 2021-03-13 12:59 | disposition home or self-care (01) ==
LOC: CC.ED 16:49 → UNDOADMOB 19:00 → CC.MS 19:00 → CC.ED 19:15
PROVIDERS: ADMIT Physician Assistant Medical; ATTEND Family Medicine
DX: S22.49XA Multiple fractures of ribs, unspecified side, initial encounter for closed fracture (principal); S51.011A Laceration without foreign body of right elbow, initial encounter; S00.83XA Contusion of other part of head, initial encounter; T14.8XXA Other injury of unspecified body region, initial encounter; I10 Essential (primary) hypertension; I48.20 Chronic atrial fibrillation, unspecified; E03.9 Hypothyroidism, unspecified; F03.90 Unspecified dementia, unspecified severity, without behavioral disturbance, psychotic disturbance, mood disturbance, and anxiety; M10.9 Gout, unspecified; Z88.8 Allergy status to other drugs, medicaments and biological substances; Z79.890 Hormone replacement therapy; Z79.899 Other long term (current) drug therapy; W18.39XA Other fall on same level, initial encounter
CPT/HCPCS: 70450; 71250; 72125; 72170; 97161-GP; 97530-GP; 99217; 99220; 99225; 99285-25; A9270-GY; G0378

== ENCOUNTER 2021-05-14 02:00 | Emergency (ER) | payer MEDICARE, BC ==
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
[2021-05-14 04:52] VITALS: BP 146/67; PULSE 63
== END 2021-05-14 08:35 | disposition home or self-care (01) ==
LOC: CC.ED 02:00
DX: M25.551 Pain in right hip (principal); G89.11 Acute pain due to trauma; E03.9 Hypothyroidism, unspecified; I10 Essential (primary) hypertension; K21.9 Gastro-esophageal reflux disease without esophagitis; Z95.0 Presence of cardiac pacemaker; Z79.01 Long term (current) use of anticoagulants; Z79.899 Other long term (current) drug therapy; Z88.1 Allergy status to other antibiotic agents
CPT/HCPCS: 70450; 99284; 99284-25

== ENCOUNTER 2021-12-20 12:40 | Emergency (ER) | payer MEDICARE, BC ==
[2021-12-20 12:43] VITALS: BP 132/62; PULSE 77
[2021-12-20] MEDS: Ondansetron 4 MG Tab.DIS PO ONE (13:56)
[2021-12-20] MEDS: Take Home: Ondansetron 4 MG Tab.DIS, 2 Tab Pack PO ONE (13:57)
== END 2021-12-20 14:15 | disposition home or self-care (01) ==
LOC: CC.ED 12:40
DX: S06.0X0A Concussion without loss of consciousness, initial encounter (principal); R11.2 Nausea with vomiting, unspecified; I10 Essential (primary) hypertension; K21.9 Gastro-esophageal reflux disease without esophagitis; E03.9 Hypothyroidism, unspecified; Z79.899 Other long term (current) drug therapy; Z79.82 Long term (current) use of aspirin; Z88.1 Allergy status to other antibiotic agents; W01.198A Fall on same level from slipping, tripping and stumbling with subsequent striking against other object, initial encounter
CPT/HCPCS: 70450; 99284; 99284-25; A9270-GY

== ENCOUNTER 2022-09-21 08:18 | Emergency (ER) | payer MEDICARE, BC ==
[2022-09-21] MEDS ORDERED: Morphine 2 MG/ML SYRINGE IVPUSH ONE (08:49)
[2022-09-21 08:51] VITALS: BP 145/69; PULSE 73
[2022-09-21] MEDS ORDERED: HYDROmorphone 0.5 MG/0.5 ML Syringe IVPUSH ONE (09:14)
[2022-09-21 09:19] LABS: PTT,PARTIAL THROMBOPLSTIN TIME 26.5 SEC (20.0-30.0)
[2022-09-21] MEDS ORDERED: Sodium Chloride 0.9% 1,000 ML IV ONE (09:31)
== END 2022-09-21 12:00 ==
LOC: CC.ED 08:18
DX: S72.141A Displaced intertrochanteric fracture of right femur, initial encounter for closed fracture (principal); I10 Essential (primary) hypertension; K21.9 Gastro-esophageal reflux disease without esophagitis; M10.9 Gout, unspecified; E03.9 Hypothyroidism, unspecified; Z88.1 Allergy status to other antibiotic agents; Z79.82 Long term (current) use of aspirin; Z79.899 Other long term (current) drug therapy; Z20.822 Contact with and (suspected) exposure to COVID-19; W18.30XA Fall on same level, unspecified, initial encounter; Y92.129 Unspecified place in nursing home as the place of occurrence of the external cause
CPT/HCPCS: 36415; 80053; 85025; 85610; 85730; 96361; 96374; 96375; 99285-25; J1170; J2270; J7030; U0002

== ENCOUNTER 2023-03-08 13:25 | Emergency (ER) | payer MEDICARE, BC ==
[2023-03-08] MEDS: fentaNYL 50 MCG/ML SDV IVPUSH ONE (14:10)
[2023-03-08] MEDS: LORazepam 2 MG/ML SDV IVPUSH ONE (14:30)
[2023-03-08 14:32] LABS: BASOPHILS ABSOLUTE AUTO 0.02 10^3/uL (0.00-0.50); BASOPHILS PERCENT AUTO 0.2 % (0-1); EOSINOPHILS ABSOLUTE AUTO 0.21 10^3/uL (0.00-1.50); EOSINOPHILS PERCENT AUTO 2.2 % (0-6); HEMATOCRIT 38.1 % (42.0-52.0); HEMOGLOBIN 12.9 g/dL (14.0-18.0); IMMATURE GRAN ABSOLUTE AUTO 0.03 10^3/uL (0.00-0.49); IMMATURE GRAN PERCENT AUTO 0.3 % (0.0-4.9); LYMPHOCYTES PERCENT AUTO 10.7 % (24-44); MEAN CORPUSCULAR HEMOGLOBIN 32.7 pg (27.0-32.0); MEAN CORPUSCULAR HGB CONC 33.9 g/dL (32.0-36.0); MEAN CORPUSCULAR VOLUME 96.5 fL (83.0-97.0); MONOCYTES ABSOLUTE AUTO 1.24 10^3/uL (0.00-1.50); MONOCYTES PERCENT AUTO 13.3 % (0-10); NEUTROPHILS ABSOLUTE AUTO 6.84 x10^3/uL (1.80-8.00); NEUTROPHILS PERCENT AUTO 73.3 % (41-71); PLATELET COUNT,PLT 262 10^3/uL (150-400); RED BLOOD CELL COUNT 3.95 x10^6/uL (4.50-6.00); WHITE BLOOD CELL COUNT,WBC 9.3 10^3/uL (4.0-11.0)
[2023-03-08 14:44] LABS: ALANINE AMINOTRANSFERASE,ALT 22 U/L (12-78); ALBUMIN 3.2 g/dL (3.4-5.0); ALKALINE PHOSPHATASE 77 U/L (46-116); ASPARTATE AMNIOTRANSFERASE,AST 29 U/L (15-37); BILIRUBIN TOTAL 0.5 mg/dL (0.0-1.0); BLOOD UREA NITROGEN,BUN 19 mg/dL (7-18); CALCIUM 8.8 mg/dL (8.4-10.1); CARBON DIOXIDE,CO2 30 mmol/L (21-32); CHLORIDE,CL 102 mEq/L (98-106); CREATININE 0.9 mg/dL (0.7-1.3); GLUCOSE RANDOM 103 mg/dL (75-99); POTASSIUM,K 3.8 mEq/L (3.5-5.0); PROTEIN TOTAL,TP 6.4 g/dL (6.4-8.2); SODIUM,NA 139 mEq/L (136-145)
[2023-03-08 14:45] LABS: ESTIMATED GFR 84 mL/min (>=60); ETHANOL BLOOD MEDICAL < 3 mg/dL (0-3)
[2023-03-08] MEDS: Iopamidol 755 Mg/ML 100 ML Bottle IVPUSH ONE (14:59)
[2023-03-08 15:37] LABS: INR 1.04 (0.92-1.18); PROTHROMBIN TIME 10.7 SEC (9.3-11.3)
[2023-03-08] MEDS ORDERED: Lidocaine 1% 5 ML VIAL ONE (17:28)
[2023-03-08] MEDS: fentaNYL 50 MCG/ML SDV ONE (17:35)
[2023-03-08] MEDS: Lidocaine 1% 5 ML VIAL ONE ×3 (17:40)
[2023-03-08] MEDS: Lidocaine 1% 30 ML SDV INJECT ONE (17:41)
[2023-03-08 17:50] VITALS: BP 160/79; PULSE 74
== END 2023-03-08 18:16 | disposition home or self-care (01) ==
LOC: CC.ED 13:25
DX: S01.81XA Laceration without foreign body of other part of head, initial encounter (principal); S61.412A Laceration without foreign body of left hand, initial encounter; S20.211A Contusion of right front wall of thorax, initial encounter; I10 Essential (primary) hypertension; K21.9 Gastro-esophageal reflux disease without esophagitis; E03.9 Hypothyroidism, unspecified; M10.9 Gout, unspecified; Z88.1 Allergy status to other antibiotic agents; Z79.899 Other long term (current) drug therapy; Z79.82 Long term (current) use of aspirin; W19.XXXA Unspecified fall, initial encounter; Y92.129 Unspecified place in nursing home as the place of occurrence of the external cause
CPT/HCPCS: 12002; 12011; 36415; 70450; 71260; 72125; 73120-LT; 74177; 80053; 80179; 80307; 84484; 85025; 85610; 86850; 86900; 86901; 93005; 96374; 96375; 99284-25; J2060; J3010; J3490; Q9967

== ENCOUNTER 2023-06-06 13:14 | Emergency (ER) | payer MEDICARE, BC ==
[2023-06-06 13:18] VITALS: BP 163/98; PULSE 82
[2023-06-06] MEDS: fentaNYL 50 MCG/ML SDV IVPUSH ONE (13:44)
[2023-06-06 14:00] LABS: BASOPHILS ABSOLUTE AUTO 0.02 10^3/uL (0.00-0.50); BASOPHILS PERCENT AUTO 0.2 % (0-1); EOSINOPHILS ABSOLUTE AUTO 0.11 10^3/uL (0.00-1.50); EOSINOPHILS PERCENT AUTO 0.9 % (0-6); HEMATOCRIT 40.5 % (42.0-52.0); HEMOGLOBIN 13.1 g/dL (14.0-18.0); IMMATURE GRAN ABSOLUTE AUTO 0.03 10^3/uL (0.00-0.49); IMMATURE GRAN PERCENT AUTO 0.3 % (0.0-4.9); LYMPHOCYTES ABSOLUTE AUTO 0.85 10^3/uL (0.60-5.00); LYMPHOCYTES PERCENT AUTO 7.1 % (24-44); MEAN CORPUSCULAR HEMOGLOBIN 31.6 pg (27.0-32.0); MEAN CORPUSCULAR HGB CONC 32.3 g/dL (32.0-36.0); MEAN CORPUSCULAR VOLUME 97.8 fL (83.0-97.0); MONOCYTES ABSOLUTE AUTO 1.04 10^3/uL (0.00-1.50); MONOCYTES PERCENT AUTO 8.7 % (0-10); NEUTROPHILS ABSOLUTE AUTO 9.86 x10^3/uL (1.80-8.00); NEUTROPHILS PERCENT AUTO 82.8 % (41-71); PLATELET COUNT,PLT 258 10^3/uL (150-400); RED BLOOD CELL COUNT 4.14 x10^6/uL (4.50-6.00); WHITE BLOOD CELL COUNT,WBC 11.9 10^3/uL (4.0-11.0)
[2023-06-06 14:21] LABS: ALBUMIN 3.6 g/dL (3.4-5.0); BILIRUBIN TOTAL 0.6 mg/dL (0.0-1.0); CALCIUM 8.9 mg/dL (8.4-10.1); EST CRCL DRUG DOSING (CG) 58.57 mL/min; MAGNESIUM 1.8 mg/dL (1.8-2.4); POTASSIUM,K 4.3 mEq/L (3.5-5.0); PROTEIN TOTAL,TP 7.2 g/dL (6.4-8.2)
[2023-06-06 14:40] LABS: APPEARANCE,URINE CLEAR (CLEAR); BILIRUBIN,URINE NEGATIVE (NEGATIVE); COLOR,URINE YELLOW (YELLOW); GLUCOSE,URINE NEGATIVE (NEGATIVE); KETONES,URINE NEGATIVE (NEGATIVE); LEUKOCYTE ESTERASE,URINE NEGATIVE (NEGATIVE); NITRITE,URINE NEGATIVE (NEGATIVE); OCCULT BLOOD,URINE TRACE-INTACT (NEGATIVE); PH,URINE 7.5 (4.5-8.0); PROTEIN,URINE 30 mg/dL (NEGATIVE); UROBILINOGEN,URINE 0.2 EU/dL (0.2-1.0)
[2023-06-06 14:46] LABS: BACTERIA,URINE OCCASIONAL /HPF (NOT SEEN); EPITHELIAL CELLS,URINE OCCASIONAL /HPF (NOT SEEN); MUCUS,URINE FEW /HPF (NOT SEEN); WBC,URINE 0-5 /HPF (0-5)
[2023-06-06] MEDS: Sodium Chloride 0.9% 500 ML IV STA (15:09)
== END 2023-06-06 17:42 | disposition home or self-care (01) ==
LOC: CC.ED 13:14
DX: S70.01XA Contusion of right hip, initial encounter (principal); W18.30XA Fall on same level, unspecified, initial encounter; I10 Essential (primary) hypertension; E03.9 Hypothyroidism, unspecified; K21.9 Gastro-esophageal reflux disease without esophagitis; M10.9 Gout, unspecified; Z88.1 Allergy status to other antibiotic agents; Z88.8 Allergy status to other drugs, medicaments and biological substances; Z79.899 Other long term (current) drug therapy; Z79.82 Long term (current) use of aspirin
CPT/HCPCS: 36415; 70450; 71045; 72125; 80053; 81001; 82550; 83605; 83735; 84484; 85025; 93005; 93010; 96361; 96374; 99284; 99285-25; J3010; J7040

== ENCOUNTER 2023-09-01 20:56 | Emergency (ER) | payer MEDICARE, BC ==
[2023-09-01] MEDS: Lidocaine 1% with EPINEPHrine 1:100,000 10 ML MDV INJECT ONE (21:30)
[2023-09-02 02:29] VITALS: BP 180/73; PULSE 69
== END 2023-09-01 23:59 | disposition home or self-care (01) ==
LOC: CC.ED 20:56
DX: S52.022A Displaced fracture of olecranon process without intraarticular extension of left ulna, initial encounter for closed fracture (principal); S32.592A Other specified fracture of left pubis, initial encounter for closed fracture; S01.81XA Laceration without foreign body of other part of head, initial encounter; S01.411A Laceration without foreign body of right cheek and temporomandibular area, initial encounter; I10 Essential (primary) hypertension; K21.9 Gastro-esophageal reflux disease without esophagitis; E03.9 Hypothyroidism, unspecified; Z79.899 Other long term (current) drug therapy; Z88.8 Allergy status to other drugs, medicaments and biological substances; Z88.1 Allergy status to other antibiotic agents; W18.30XA Fall on same level, unspecified, initial encounter
CPT/HCPCS: 12015; 29105; 29125; 70450; 71045; 72125; 72192; 73070-LT; 73100-LT; 99284; J3490

== ENCOUNTER 2025-02-04 21:25 | Emergency (ER) | payer MEDICARE, BC ==
[2025-02-04 21:41] VITALS: BP 146/77; PULSE 60
[2025-02-05] MEDS: Diphtheria/Tetanus Toxoids,Adult (Td) 0.5 ML Syringe IM ONE (00:19)
== END 2025-02-05 00:22 | disposition home or self-care (01) ==
LOC: CC.ED 21:25
DX: S01.01XA Laceration without foreign body of scalp, initial encounter (principal); I10 Essential (primary) hypertension; E03.9 Hypothyroidism, unspecified; Z95.0 Presence of cardiac pacemaker; Z88.1 Allergy status to other antibiotic agents; Z88.8 Allergy status to other drugs, medicaments and biological substances; Z79.890 Hormone replacement therapy; Z23 Encounter for immunization; Z79.899 Other long term (current) drug therapy; Z79.82 Long term (current) use of aspirin; W01.198A Fall on same level from slipping, tripping and stumbling with subsequent striking against other object, initial encounter; Y93.89 Activity, other specified
CPT/HCPCS: 12002; 70450; 71045; 72125; 72170; 90471; 90714; 99282; 99284-25